=== PATIENT | male | born 1935 | race Caucasian/White ===

== ENCOUNTER 2020-01-06 15:59 | Inpatient (IN) | payer MEDICARE, MEDICAID, SELFPAY ==
[2020-01-06] VITALS (9 sets, daily range): BP systolic 100–130; BP diastolic 42–58; PULSE 87–106; RESP 20; TEMP 37.1–38.9; O2SAT 96–100; BMI 20.9
--- NOTE | ~2020-01-06 | CT_ITS ---
EXAMINATION: CT abdomen pelvis wo con DATE: 01/11/2020 10:22 INDICATION: Hydronephrosis. Leukocytosis. TECHNIQUE: Computed tomography (CT) of the abdomen and pelvis was performed without intravenous contr ast. Automated exposure control and iterative reconstruction technique were employed. The dose-length product was 246.73 mGy-cm. COMPARISON: CT abdomen and pelvis 11/08/2019 FINDINGS: The visualized portions of the lung bases demonstrate mild atelectasis and mild chronic int erstitial lung disease. There is a trace right pleural effusion. The heart size is normal. There are coronary artery calcifications. No pericardial effusion. The liver and spleen are normal. The gallbla dder is contracted. The pancreas and adrenal glands are normal. There are vascular calcifications at the brigitte of the kidneys. There is a 2.6 cm cyst in right kidney. There is a 1.6 cm cyst in left kidne y. There is edema around the kidneys. There is moderate bilateral hydronephrosis and hydroureter. The re is a 4.9 cm stone in the bladder. The bladder wall is trabeculated and thickened. There are bilate ral inguinal hernias containing nonobstructed small bowel. There is diverticulosis of the colon witho ut evidence of diverticulitis. The appendix is not visualized. There are no pathologically enlarged l ymph nodes. There is no free intraperitoneal fluid. There is mild lumbar spondylosis. IMPRESSION: 1. 4.9 cm bladder stone. Diffuse bladder wall thickening and trabeculation may be secondary to chroni c outlet obstruction or cystitis. 2. Unchanged moderate bilateral hydronephrosis and hydroureter. 3. Bilateral inguinal hernias containing nonobstructed small bowel. Reviewed, dictated and finalized at location A. IMPRESSION: 1. 4.9 cm bladder stone. Diffuse bladder wall thickening and trabeculation may be secondary to chronic outlet obstruction or cystitis. 2. Unchanged moderate bilateral hydronephrosis and hydroureter. 3. Bilateral inguinal hernias containing nonobstructed small bowel.
--- NOTE | ~2020-01-06 | CT_ITS ---
EXAMINATION: CT abdomen pelvis wo con DATE: 01/08/2020 09:06 INDICATION: Bladder stone. TECHNIQUE: Computed tomography (CT) of the abdomen and pelvis was performed without intravenous contr ast. Automated exposure control and iterative reconstruction technique were employed. The dose-length product was 219.16 mGy-cm. COMPARISON: Abdomen radiographs 01/07/2020 FINDINGS: The visualized portions of the lung bases demonstrate mild atelectasis and mild chronic demetris g disease. No pleural effusion. The heart size is normal. There are coronary artery calcifications. N o pericardial effusion. The liver, gallbladder, spleen, pancreas, and adrenal glands are normal. Ther e are arterial calcifications at the brigitte of the kidneys. There is a 1.9 cm cyst in left kidney. Ther e is moderate bilateral hydronephrosis and hydroureter. There is a 4.9 cm stone in the bladder. There is diffuse bladder wall thickening and trabeculation. The prostate is mildly enlarged. There is dive rticulosis of the colon without evidence of diverticulitis. There are bilateral inguinal hernias cont aining nonobstructed small bowel. There are no pathologically enlarged lymph nodes. There is no free intraperitoneal fluid. There is mild thoracolumbar spondylosis. IMPRESSION: 1. 4.9 cm bladder stone. Diffuse bladder wall thickening may be secondary to chronic outlet obstructi on or cystitis. 2. Moderate bilateral hydronephrosis and hydroureter. 3. Bilateral inguinal hernias containing nonobstructed small bowel. Reviewed, dictated and finalized at location B. IMPRESSION: 1. 4.9 cm bladder stone. Diffuse bladder wall thickening may be secondary to ch ronic outlet obstruction or cystitis. 2. Moderate bilateral hydronephrosis and hydroureter. 3. Bilateral inguinal hernias containing nonobstructed small bowel.
--- NOTE | ~2020-01-06 | XR_ITS ---
EXAMINATION: XR abdomen/kub 1V DATE: 01/07/2020 11:38 INDICATION: Back pain. Kidney infection. TECHNIQUE: A supine view of the abdomen on 2 radiographs was obtained. COMPARISON: None. FINDINGS: There are no dilated loops of bowel. There are phleboliths in the pelvis. There is a 5.6 cm calcification in the pelvis, likely a bladder stone. IMPRESSION: 1. Large bladder stone. Reviewed, dictated and finalized at location B. IMPRESSION: 1. Large bladder stone.
--- NOTE | ~2020-01-06 | XR_ITS ---
EXAMINATION: XR chest 2V EXAM DATE: 01/06/2020 17:47 INDICATION: Fever, mass, transient alteration of awareness. TECHNIQUE: Frontal and lateral projections of the chest obtained and reviewed. Comparison is made to prior examination from 08/28/2018. FINDINGS: Moderate chronic hyperinflation. No confluent consolidation, pneumothorax or pleural effus ion suspected. There is aortic arteriosclerosis. The bones are osteopenic. There are bony degenerati ve changes. IMPRESSION: Hyperinflation Reviewed, dictated and finalized at location A. IMPRESSION: Hyperinflation
[2020-01-06 16:57] LABS: Basophils Absolute Auto 0.1 K/mm3 (0.0-0.1); Basophils Percent Auto 0.3 % (0.2-1.2); Hematocrit 30.1 % (42.0-52.0); Hemoglobin 9.8 g/dL (14.0-18.0); Immature Granulocyte Absolute 0.16 K/mm3 (0.00-0.031); Immature Granulocyte Percent A 0.6 % (0-0.5); Lymphocytes Absolute Auto 0.73 K/mm3 (0.9-3.2); Mean Corpuscular HGB Conc 32.6 g/dl (32-36); Mean Platelet Volume 9.5 fl (7.4-10.4); Monocytes Absolute Auto 1.3 K/mm3 (0.1-0.6); Monocytes Percent Auto 5.2 % (2.6-8.5); Neutrophils Absolute Auto 22.4 K/mm3 (1.3-6.7); Neutrophils Percent Auto 90.9 % (45.5-73.1); Platelet Count Result 337 k/mm3 (150-375); White Blood Count 24.6 K/mm3 (4.5-10.0)
[2020-01-06 17:09] LABS: Alanine Aminotransferase 11 U/L (4-50); Albumin Level 3.6 g/dL (3.5-5.1); Alkaline Phosphatase 92 U/L (38-126); Anion Gap 9 mmol/L (8-16); Aspartate Amino Transferase 20 U/L (17-59); Bilirubin,Total 0.3 mg/dL (0.2-1.3); Blood Urea Nitrogen 46 mg/dL (9-20); Calcium 8.7 mg/dL (8.4-10.2); Carbon Dioxide 20 mmol/L (22-30); Chloride 103 mmol/L (98-107); Estimated CRCL calculation 17 ml/min; Estimated Glomerular Filt Rate 25; Glucose 130 mg/dL (75-110); Potassium 4.3 mmol/L (3.4-5.0); Sodium 132 mmol/L (137-145)
[2020-01-06] MEDS: SODIUM CHLORIDE 0.9% IV 1,000 ML 999 ML IV CONT ×2 (18:21→20:16)
--- NOTE | 2020-01-06 18:30 | ED.FEVER ---
HPI - Fever General Chief Complaint: Fever Stated Complaint: fever, short of breath Time Seen by Provider: 01/06/20 17:15 Source: patient and family Mode of arrival: ambulatory Limitations: other (hard of hearing) History of Present Illness HPI Narrative: This patient is an 84 year old male who presents with daughter for evaluation of weakness and possible UTI. His daughter states she has noticed foul smelling urine and fatigue over the past 1.5 weeks. She reports he is normally active but he has not felt like doing much over the past week. She also reports he has chronic issue with incontinence but it has been more frequent over the past month. His family member also reports patient had a fever of 101 at home today. He was not given any medication for his fever. Patien denies chest pain, cough, sob, abdominal pain, nausea or vomiting. His daughter states patient told her he was having shortness of breath. He states he felt that way earlier because he had a mask on He denies any complaints now MD elicited complaint: fever Related Data Home Medications Medication Instructions Recorded Confirmed No Home Medications 01/06/20 01/06/20 Allergies Allergy/AdvReac Type Severity Reaction Status Date / Time No Known Allergies Allergy Verified 01/06/20 17:24 Review of Systems Review of Systems: All systems reviewed & are unremarkable except as noted in HPI and below Constitutional: Constitutional: Reports fatigue and Reports fever(s) PMF Past Medical History Medical History (Updated 01/06/20 @ 22:10 by Elizabeth Soares MD) Patient denies medical problems Surgical History Surgical History (Updated 01/06/20 @ 19:57 by Elizabeth Soares MD) No significant past surgical history Social History Social History (Updated 01/06/20 @ 19:57 by Elizabeth Soares MD) Smoking packs per day: 1 Smoking cigarettes per day: 20.0 Smoking status: Former smoker Alcohol intake: never Gender identity (if verbalized by the patient): Male Exam Const: General: no acute distress and alert Nutritional Appearance: thin Orientation/consciousness: patient oriented x3 HENMT: Head: normocephalic and atraumatic Face and sinus: face symmetric Mouth: Yes lip normal and Yes moist mucous membranes Throat: uvula midline Eyes: Pupils: Equal, round and reactive pupils present EOM: EOMs intact bilaterally Neck: Neck: normal visual inspection and no lymphadenopathy Chest: Chest palpation & inspection: normal inspection of the chest Resp: Effort & Inspection: normal respiratory effort and no retractions Auscultation: clear to auscultation bilaterally Cardio: Rate: regular rate Rhythm: regular rhythm Heart sounds: no murmurs GI: GI Palp: Yes Soft to palpation, No Tenderness to palpation present (GI), No Guarding due to palpation present (GI), No Rigid due to palpation and Yes Hernia present (bilateral inguinal hernia) : Penis: Yes uncircumcised (purulent discharge at urethral meatus) Skin: General skin exam: normal color Neuro: General: patient oriented x3 and moves all extremities Course Reevaluation(s) Reevaluation #1: I Discussed with patient's daughter that he will be admitted to hospital. She states he has no known medical problems. This is the second time he has come to hospital in his life per daughter. She also denies surgeries. Date: 01/06/20 Time: 19:55 Consultations Consultation #1: I Discussed case with DR. Riojas who accepts patient to medical floor. Date: 01/06/20 Time: 20:27 Vital Signs Vital signs: Vital Signs Temperature 98.8 F 01/06/20 16:44 Pulse Rate 106 H 01/06/20 16:44 Respiratory Rate 01/06/20 16:44 Blood Pressure 106/50 L 01/06/20 16:44 Pulse Oximetry 100 01/06/20 16:44 Temperature 98.8 F 01/06/20 16:44 Pulse Rate 97 01/06/20 21:55 Respiratory Rate 20 01/06/20 21:55 Blood Pressure 100/48 L 01/06/20 21:55 Pulse Oximetry 97
[2020-01-06 18:34] LABS: INR 1.2; Lactic Acid Reflex 1.1 mmol/L (0.7-2.1); Prothrombin Time 15.3 Seconds (11.1-14.7)
[2020-01-06 18:35] LABS: Partial Thromboplastin Time 38.7 SECONDS (22.3-36.8)
[2020-01-06 18:35] LABS: Add Urine Microscopic? YES; Appearance Urine Turbid (Clear); Bacteria Urine 1+ /hpf; Bilirubin Urine Negative (Negative); Blood Urine 2+ (Negative); Glucose Urine UA Negative (Negative); Ketones Urine Negative (Negative); Leukocyte Esterase Ur 3+ LEU/UL (Negative); Mucus Urine Rare /lpf; Nitrate Urine Positive (Negative); Protein Urine 2+ mg/dL (Negative); Specific Grav Ur 1.011 (1.001-1.035); Squamous Epithelial Cell Urine Occasional /hpf (Few); Urobilinogen Urine Negative mg/dL (<2.0); WBC Clumps Urine Present /HPF; WBC Urine >75 /hpf
[2020-01-06 18:44] LABS: Color Urine Dark Yellow (Yellow)
[2020-01-06 18:50] LABS: Lactate Dehydrogenase 361 U/L (313-618)
[2020-01-06 19:01] LABS: Alveolar/Arterial O2 Gradient 37.9 mmHg; Base Excess ABG -6.1 mEq/l (+/-2.0); Carboxyhemoglobin 0.6 % THb (0-2.0); Fractional Inspired Oxygen 21 %; HCO3 ABG 17.2 mEq/l (22.0-26.0); Methemoglobin ABG 0.2 %THb (0-1.5); Oxygen Content ABG 12.7 %vol (16.0-22.0); Oxygen Saturation ABG 96.2 % (95.0-100.0); Oxyhemoglobin 94.6 % THb (90.0-100.0); PCO2 ABG 26.9 mmHg (35.0-45.0); PO2 ABG 79.6 mmHg (80.0-100.0); PO2 FiO2 Ratio Arterial Blood 3.79 %; Reduced Hemoglobin 4.6 %THb (0-5.0); Total Hemoglobin 9.5 g/dL (12.0-18.0); pH ABG 7.424 (7.350-7.450)
[2020-01-06 19:02] LABS: Device ROOM AIR; Site Drawn RIGHT BRACHIAL
[2020-01-06 19:04] LABS: CRP 32.6 mg/dL (<1.0)
--- NOTE | 2020-01-06 20:28 | ECG_ITS ---
Measurements Intervals [place] Rate: 114 P: 68 ME: 116 QRS: 86 QRSD: 94 T: 86 QT: 358 QTc: 494 Interpretive Statements SINUS TACHYCARDIA WITH SHORT ME INTERVAL ATRIAL PREMATURE COMPLEXES QRS MORPHOLOGY ALTERNATING RIGHT BUNDLE BRANCH BLOCK AND IRBBB BORDERLINE T WAVE ABNORMALITY- DIFFUSE LEADS BASELINE ARTIFACT- I, II, III, AVL, AVF, V4-V6 ABNORMAL ECG Electronically Signed On 01-07-2020 7:12:25 CDT by Obey Suarez D.O.
[2020-01-06] MEDS: SODIUM CHLORIDE 0.9% IV 1,000 ML 125 ML IV CONT (23:01)
--- NOTE | 2020-01-06 23:16 | ADMGEN ---
This patient, Jay Garncia, was admitted to Medical Room 251-. Patient/family oriented to hospital policies and general routines including ID bracelet, bed and alarms, visiting hours, pain management, procedures, bathroom and other care routines, personal items, smoking policy, room service/diet, and visiting hours. Valuables list has been completed. Information on how to activate the Rapid Response Team has been discussed. Patient/Family are encouraged to report perceived risks to care and to ask questions if they do not understand what they are told or what they should do.
[2020-01-07 05:14] LABS: Basophils Absolute Auto 0.1 K/mm3 (0.0-0.1); Basophils Percent Auto 0.4 % (0.2-1.2); Eosinophils Percent Auto 0.3 % (0-4.4); Hematocrit 26.9 % (42.0-52.0); Hemoglobin 8.4 g/dL (14.0-18.0); Immature Granulocyte Absolute 0.11 K/mm3 (0.00-0.031); Immature Granulocyte Percent A 0.8 % (0-0.5); Lymphocytes Absolute Auto 1.48 K/mm3 (0.9-3.2); Lymphocytes Percent Auto 10.5 % (18.3-44.2); Mean Corpuscular HGB Conc 31.2 g/dl (32-36); Mean Corpuscular Hemoglobin 27.5 pg (26-34); Mean Corpuscular Volume 88.2 fl (80-100); Mean Platelet Volume 9.6 fl (7.4-10.4); Monocytes Absolute Auto 1.1 K/mm3 (0.1-0.6); Neutrophils Absolute Auto 11.3 K/mm3 (1.3-6.7); Platelet Count Result 247 k/mm3 (150-375); Red Blood Count 3.05 M/mm3 (4.6-6.20); White Blood Count 14.1 K/mm3 (4.5-10.0)
[2020-01-07 05:34] LABS: Alanine Aminotransferase 12 U/L (4-50); Albumin Level 2.8 g/dL (3.5-5.1); Alkaline Phosphatase 71 U/L (38-126); Anion Gap 8 mmol/L (8-16); Aspartate Amino Transferase 22 U/L (17-59); Bilirubin,Total 0.3 mg/dL (0.2-1.3); Blood Urea Nitrogen 41 mg/dL (9-20); Calcium 7.5 mg/dL (8.4-10.2); Carbon Dioxide 19 mmol/L (22-30); Chloride 109 mmol/L (98-107); Estimated CRCL calculation 18 ml/min; Estimated Glomerular Filt Rate 27; Glucose 94 mg/dL (75-110); Potassium 4.3 mmol/L (3.4-5.0); Sodium 136 mmol/L (137-145)
[2020-01-07 06:00] VITALS: BP 110/52; PULSE 82; RESP 16; TEMP 36.5; O2SAT 97
[2020-01-07] MEDS: SODIUM CHLORIDE 0.9% IV 1,000 ML 125 ML IV CONT ×2 (08:27→17:33)
[2020-01-07] MEDS: ENOXAPARIN 30 MG/0.3 ML SYRINGE SUB-Q (08:28)
--- NOTE | 2020-01-07 09:28 | PM.IMHP ---
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 Patient is A&Ox3 for me today; he is hard of hearing. He answers questions appropriately but generally is a poor historian. Most of history is obtained from EMR and from step-daughter, Echo, who was contacted with patient's permission. Per patient, he is here, to take care of an infection . It is difficult for him to give me many more details beyond that, although he tells me that he has urinary incontinence and has been wearing depends for months; denies dysuria, hematuria, cloudy urine as far as he can tell. No back pain or any other pain, although Echo states he was grabbing his lower back and stating my kidneys are bad . He reportedly had a fever of 101 at home, prompting Echo to bring patient into the ER. Echo also notes that his frequency has increased the past 4-5 months and that his activity level has decreased the past several months, starting around when COVID pandemic began. He has worsened generalized weakness for the past 1.5 weeks, per Echo. Patient denies any other symptoms for me today; Echo is not aware of any other associated signs/symptoms. Echo and PAtient note he has hard stools occasionally, for which he takes a stool softener occasionally. Patient denies subjective f/c/s, myalgias/arthralgias, headaches, dizziness, lightheadedness, acute changes in v/h, cp/palpitations, sob/cough, n/v/d, abd pain, changes in BMs, dysuria, hematuria, cloudy urine, calf pain/swelling. No other sick contacts at home While in the ER, patient was found to have a UA suspicious for a UTI; he was also found to have a fever of 102 and an elevated WBC of 24.6k, meeting criteria for sepsis with UTI as suspected source; normal Lactic Acid. UCx and BCx obtained in ER and patient was placed on IV rocephin and IVF. Patient was also found to have a STELLA with Cr of 2.50, which improved with IVF this morning. Patient admitted under setting of STELLA, UTI/sepsis. 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 He is . He quit smoking for an unknown duration until his last year. His PCP is listed as Dr. Montejo. He wishes to be a Full Code Smoking packs per day: 0 Smoking cigarettes per day: 0.0 Years smoked: 68 Smoking pack-years: 0.00 Smoking status: Current every day smoker Tobacco type: cigarettes Second hand tobacco smoke exposure: Yes Additional smoking assessment comments: 6 cigarettes/day Alcohol intake: never Substance use: never Substance use type: does not use Gender identity (if verbalized by the patient): Male Spiritual care concerns: No Meds Home Medications and Allergies Home Medications Medication Instructions Recorded Confirmed Type No Home Medications
--- NOTE | 2020-01-07 11:39 | PCOTNOTE ---
Attempted OT evaluation, but patient out of room for a KUB. Will attempt again later today.
[2020-01-07] MEDS: DOCUSATE SODIUM 100 MG CAPSULE PO ×2 (12:13→21:43)
[2020-01-07 14:00] VITALS: BP 132/56; PULSE 85; RESP 16; TEMP 36.3; O2SAT 98
--- NOTE | 2020-01-07 16:22 | WPDURCON ---
Assessment and Plan Assessment and plan (1) Acute UTI: Code(s): N39.0 - Urinary tract infection, site not specified Status: Acute Assessment and Plan: continue IV antibiotics, tailor to culture sensitivity will plan to follow up in the office as an outpatient for surgical evaluation of bladder stone once infection has cleared and to repeat urine culture. No further evaluation at this time. (2) Bladder stone: Code(s): N21.0 - Calculus in bladder Status: Acute Urology Consult Note HPI Date Seen: 01/07/20 Requesting Physician: Trell Granda PA-C Primary Care Provider: Dev Montejo MD Consult Narrative Narrative: Jay Garnica is a 84 year old male who presented to the ER with c/o foul smelling urine x 1.5 weeks and frequency x 4-5 weeks. He denies hematuria, nocturia, hesitancy, straining, abdominal pain, flank pain, fever or chills. His urine culture is growing gram negative bacilli, but sensitivity is not yet done. He is currently on IV antibiotics and blood cultures are pending. His abdominal x-ray shows a large bladder stone measuring 5.6cm. 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 He is . He quit smoking for an unknown duration until his last year. His PCP is listed as Dr. Montejo. He wishes to be a Full Code Smoking packs per day: 0 Smoking cigarettes per day: 0.0 Years smoked: 68 Smoking pack-years: 0.00 Smoking status: Current every day smoker Tobacco type: cigarettes Second hand tobacco smoke exposure: Yes Additional smoking assessment comments: 6 cigarettes/day Alcohol intake: never Substance use: never Substance use type: does not use Gender identity (if verbalized by the patient): Male Spiritual care concerns: No Meds Home Medications and Allergies Home Medications Medication Instructions Recorded Confirmed Type No Home Medications 01/06/20 01/06/20 History Allergies Allergy/AdvReac Type Severity Reaction Status Date / Time No Known Allergies Allergy Verified 01/06/20 17:24 Vital Signs Vital Signs - 24 hr 01/06/20 16:44 01/06/20 17:20 01/06/20 17:21 Temperature 98.8 F Pulse Rate 106 H 95 Respiratory Rate 20 20 20 Blood Pressure 106/50 L 126/58 L Pulse Oximetry 100 98 01/06/20 18:21 01/06/20 19:14 01/06/20 20:15 Temperature Pulse Rate 95 87 96 Respiratory Rate 20 20 20 Blood Pressure 120/56 L 102/42 L Pulse Oximetry 97 98 96 01/06/20 21:55 01/06/20 23:02 01/06/20 23:08 Temperature 102 F H 102.0 F H Pulse Rate 97 100 Respiratory Rate 20 20 Blood Pressure 100/48 L 130/52 L Pulse Oximetry 97 100 01/07/20 06:00 01/07/20 14:00 Temperature 97.7 F 97.4 F L Pulse Rate 82 85 Respiratory Rate 16 16 Blood Pressure 110/52 L 132/56 L Pulse Oximetry 97 98 Exam Resp: Effort & Inspection: normal respiratory effort Cardio: Rate:
[2020-01-07 21:56] VITALS: BP 121/58; PULSE 89; RESP 16; TEMP 37.4; O2SAT 99
[2020-01-08] MEDS: SODIUM CHLORIDE 0.9% IV 1,000 ML 125 ML IV CONT (03:29)
[2020-01-08 05:39] VITALS: BP 117/46; PULSE 93; RESP 18; TEMP 37.2; O2SAT 99
[2020-01-08 06:01] LABS: Basophils Percent Auto 0.3 % (0.2-1.2); Hemoglobin 8.7 g/dL (14.0-18.0); Immature Granulocyte Absolute 0.08 K/mm3 (0.00-0.031); Immature Granulocyte Percent A 0.7 % (0-0.5); Lymphocytes Absolute Auto 1.21 K/mm3 (0.9-3.2); Lymphocytes Percent Auto 10.3 % (18.3-44.2); Mean Corpuscular HGB Conc 31.1 g/dl (32-36); Monocytes Absolute Auto 0.8 K/mm3 (0.1-0.6); Monocytes Percent Auto 6.8 % (2.6-8.5); Neutrophils Absolute Auto 9.6 K/mm3 (1.3-6.7); Neutrophils Percent Auto 81.9 % (45.5-73.1); Platelet Count Result 255 k/mm3 (150-375); Red Blood Count 3.22 M/mm3 (4.6-6.20); Red Cell Distribution Width 13.9 % (11.5-14.5); White Blood Count 11.8 K/mm3 (4.5-10.0)
[2020-01-08 06:14] LABS: Iron < 10 ug/dL (49-181)
[2020-01-08 06:18] LABS: Anion Gap 7 mmol/L (8-16); Blood Urea Nitrogen 30 mg/dL (9-20); Calcium 7.9 mg/dL (8.4-10.2); Carbon Dioxide 19 mmol/L (22-30); Chloride 114 mmol/L (98-107); Estimated CRCL calculation 19 ml/min; Estimated Glomerular Filt Rate 30; Glucose 101 mg/dL (75-110); Potassium 3.8 mmol/L (3.4-5.0); Sodium 140 mmol/L (137-145)
[2020-01-08] MEDS: ENOXAPARIN 30 MG/0.3 ML SYRINGE SUB-Q (08:41)
--- NOTE | 2020-01-08 11:32 | PM.IMPN ---
Progress Note: A&P Assessment and Plan (1) Acute UTI: Code(s): N39.0 - Urinary tract infection, site not specified Status: Acute Assessment and Plan: Patient placed on Rocephin in ER. BCx and UCx both growing E. Coli, susceptible to Rocephin. Large bladder calculus evident on xray and CT imaging. Echo states that he is known to have kidney stones in the past and the patient was [facility] [place] to [facility] these [facility] otherwise he would have recurrent UTIs; patient has not followed up with this. Continue IV Rocephin; monitor daily. Likely several more days due to septicemia. Consider transitioning to cefdinir upon discharge Continue light IVF Monitor (2) Septicemia due to E. coli: Code(s): A41.51 - Sepsis due to Escherichia coli [E. coli] Status: Acute Assessment and Plan: BCx positive for E. Coli x 2. With fever, brief tachycardia and leukocytosis on arrival; normal Lactic acid. UTI suspected source. STELLA and confusion as well Continue with treatment for UTI as above Continue IVF Monitor (3) Bladder stone: Code(s): N21.0 - Calculus in bladder Status: Acute Assessment and Plan: As evident on xray and CT imaging. Bladder stone 4.[address] imaging. Possibly due to retention and etiology behind UTI. Urology consulted and appreciate recommendations Await further rec from Urology, although likely OP f/u once infection is cleared (4) Acute renal failure (ARF): Code(s): N17.9 - Acute kidney failure, unspecified Status: Acute Assessment and Plan: Cr improved to 2.10 today from 2.50 yesterday with IVF from ED. Likely secondary to dehydration vs hydronephrosis evident on CT or combination thereof. Continue light IVF for now Monitor (5) Hydronephrosis: Code(s): N13.30 - Unspecified hydronephrosis Status: Acute Assessment and Plan: Moderate hydronephrosis b/l likely due to retention. Urology consulted and appreciate recommendations Await further rec from Urology Possibly urinary catheterization Monitor kidney function (6) BPH (benign prostatic hyperplasia): Code(s): N40.0 - Benign prostatic hyperplasia without lower urinary tract symptoms Status: Acute Assessment and Plan: Mildly enlarged prostate evident on CT abd/pelvis. Possibly causing urinary retention Urology following and appreciate recommendations Monitor (7) Generalized weakness: Code(s): R53.1 - Weakness Status: Acute Assessment and Plan: Family notes patient has gotten progressively weaker over the past several weeks/months. Possibly due to physical deconditioning. Echo states they had been in contact with Dr. Montejo's office about HH but have yet to obtain this. 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 Patient states he feels okay today, main complaint is being cold from the AC and tired from being woken up so often from staff, but other than that no complaints. Denies f/c/s, headaches, dizziness, lightheadedness, cp/palpitations, sob/cough, n/v/d/c, abd pain, dysuria, calf pain/swelling. Review of Systems
--- NOTE | 2020-01-08 11:52 | WPDUROPN2 ---
Progress Note: A&P Assessment and Plan (1) Bladder stone: Code(s): N21.0 - Calculus in bladder Status: Acute Assessment and Plan: Will plan to evaluate as an outpatient after he is discharged with Dr. Mcdonnell. (2) Acute UTI: Code(s): N39.0 - Urinary tract infection, site not specified Status: Acute Assessment and Plan: Continue IV antibiotics, blood and urine cultures grew E-Coli. (3) Severe sepsis: Code(s): A41.9 - Sepsis, unspecified organism; R65.20 - Severe sepsis without septic shock Status: Acute Assessment and Plan: Improving. (4) Acute renal failure (ARF): Code(s): N17.9 - Acute kidney failure, unspecified Status: Acute Assessment and Plan: Improving, creatinine is 2.10 today, I suspect he is in retention which is causing his STELLA, will place timmons if needed after bladder scan results. (5) BPH (benign prostatic hyperplasia): Code(s): N40.0 - Benign prostatic hyperplasia without lower urinary tract symptoms Status: Acute Assessment and Plan: Start Finasteride and FLomax. (6) Hydronephrosis: Code(s): N13.30 - Unspecified hydronephrosis Status: Acute Assessment and Plan: Will get a MEÑO in a few days to see if hydronephrosis is resolving. Subjective Subjective Date/Time Seen: 01/08/20 11:52 Gross Hematuria, Sepsis, UTI, Hydronephrosis, Bladder Stone Review of Systems Cardiovascular: Cardiovascular: Denies chest pain Respiratory: Respiratory: Reports no additional respiratory complaints Gastrointestinal: Gastrointestinal: Denies abdominal pain, Denies nausea and Denies vomiting Genitourinary: Genitourinary: Denies dysuria, Denies flank pain, Reports urinary frequency, Reports urinary incontinence and Reports urinary urgency Exam Resp: Effort & Inspection: normal respiratory effort Cardio: Rate: regular rate GI: GI Palp: Yes Soft to palpation and No Tenderness to palpation present (GI) : General: Yes no CVA tenderness Extrem: General: no edema Objective Data Vital Signs Vital Signs: Vital Signs - 24 hr 01/07/20 14:00 01/07/20 21:56 01/08/20 05:39 Temperature 97.4 F L 99.3 F 99 F Pulse Rate 85 89 93 Respiratory Rate 16 16 18 Blood Pressure 132/56 L 121/58 L 117/46 L Pulse Oximetry 98 99 99 Intake/Output Intake/Output: Intake & Output 01/05/20 01/06/20 01/07/20 01/08/20 23:59 23:59 23:59 23:59 Intake Total 2150 3920 1870 Balance 2150 3920 1870 Meds/Results Medications: Active Medications Generic Name Dose Route Start Last Admin Trade Name Freq PRN Reason Stop Dose Admin Acetaminophen 650 mg 01/07/20 07:18 Tylenol Tablet PO Q6H PRN Mild Pain (1-3) or Fever Docusate Sodium 100 mg 01/08/20 11:38 Colace Capsule PO PRN PRN Constipation Enoxaparin Sodium 30 mg 01/07/20 09:00 01/08/20 08:41 Lovenox SUB-Q 30 mg DAILY KIRIT Administration Ceftriaxone Sodium/Dextrose 1 gm in 50 mls @ 100 mls/hr 01/07/20 18:00 01/07/20 18:04 Rocephin 1 Gm/D5w 50 Ml IVPB Infused Q24H KIRIT Infusion Sodium Chloride 1,000 mls @ 75 mls/hr 01/06/20 20:45 01/08/20 03:29 Normal Saline Iv IV CONT 125 mls/hr .[id number] KIRIT Administration Nicotine 1 patch 01/07/20 10:03 Nicoderm Cq 7 Mg TRANSDERM PRN PRN Nicotine Cravings Ondansetron HCl 4 mg 01/06/20 20:29 Zofran Inj IV PUSH Q4H PRN Nausea Radiology Results: ITS Impressions Chest X-Ray 01/06/20 17:54 IMPRESSION: Hyperinflation Abdomen X-Ray 01/07/20 12:28 IMPRESSION: 1. Large bladder stone. Abdomen/Pelvis CT 01/08/20 09:16 IMPRESSION: 1. 4.9 cm bladder stone. Diffuse bladder wall thickening may be secondary to chronic outlet obstruction or cystitis. 2. Moderate bilateral hydronephrosis and hydroureter. 3. Bilateral inguinal hernias containing nonobstructed small bowel. Labs Labs: Laboratory Result
[2020-01-08] MEDS: SODIUM CHLORIDE 0.9% IV 1,000 ML 75 ML IV CONT (13:21)
[2020-01-08 13:30] VITALS: BP 118/52; PULSE 80; RESP 18; TEMP 37.3; O2SAT 100
[2020-01-08 13:30] LABS: Percent Iron Saturation < 6 % (20-50)
[2020-01-08] MEDS: TAMSULOSIN HCL 0.4 MG CAPSULE PO (13:31)
[2020-01-08] MEDS: FINASTERIDE 5 MG TABLET PO (13:31)
[2020-01-08 20:00] VITALS: BP 115/40; PULSE 85; RESP 20; TEMP 37.8; O2SAT 100
[2020-01-08 21:01] VITALS: TEMP 37.7
[2020-01-08] MEDS: ACETAMINOPHEN 325 MG TABLET 650 MG PO (21:01)
[2020-01-08 22:20] VITALS: TEMP 36.6
[2020-01-09] MEDS: SODIUM CHLORIDE 0.9% IV 1,000 ML 75 ML IV CONT (03:40)
[2020-01-09 05:36] LABS: Basophils Percent Auto 0.4 % (0.2-1.2); Hematocrit 26.8 % (42.0-52.0); Hemoglobin 8.4 g/dL (14.0-18.0); Immature Granulocyte Absolute 0.07 K/mm3 (0.00-0.031); Immature Granulocyte Percent A 0.7 % (0-0.5); Lymphocytes Percent Auto 14.3 % (18.3-44.2); Mean Corpuscular HGB Conc 31.3 g/dl (32-36); Mean Corpuscular Hemoglobin 27.3 pg (26-34); Mean Platelet Volume 10.1 fl (7.4-10.4); Monocytes Absolute Auto 0.9 K/mm3 (0.1-0.6); Monocytes Percent Auto 8.2 % (2.6-8.5); Neutrophils Percent Auto 76.4 % (45.5-73.1); Platelet Count Result 255 k/mm3 (150-375); Red Blood Count 3.08 M/mm3 (4.6-6.20); Red Cell Distribution Width 14.1 % (11.5-14.5); White Blood Count 10.5 K/mm3 (4.5-10.0)
[2020-01-09 05:42] VITALS: BP 121/48; PULSE 85; RESP 18; TEMP 37; O2SAT 98
[2020-01-09 06:01] LABS: Anion Gap 6 mmol/L (8-16); Blood Urea Nitrogen 22 mg/dL (9-20); CRP 16.3 mg/dL (<1.0); Calcium 7.7 mg/dL (8.4-10.2); Carbon Dioxide 20 mmol/L (22-30); Chloride 113 mmol/L (98-107); Estimated CRCL calculation 22 ml/min; Estimated Glomerular Filt Rate 36; Glucose 100 mg/dL (75-110); Magnesium 1.8 mg/dL (1.6-2.3); Potassium 3.5 mmol/L (3.4-5.0); Sodium 139 mmol/L (137-145)
[2020-01-09] MEDS: TAMSULOSIN HCL 0.4 MG CAPSULE PO (09:44)
[2020-01-09] MEDS: FINASTERIDE 5 MG TABLET PO (09:44)
[2020-01-09] MEDS: ENOXAPARIN 30 MG/0.3 ML SYRINGE SUB-Q (09:44)
[2020-01-09 14:00] VITALS: BP 132/92; PULSE 89; RESP 16; TEMP 37.5; O2SAT 99
--- NOTE | 2020-01-09 14:01 | PM.IMPN ---
Progress Note: A&P Assessment and Plan (1) Acute UTI: Code(s): N39.0 - Urinary tract infection, site not specified Status: Acute Assessment and Plan: Patient placed on Rocephin in ER. BCx and UCx both growing E. Coli, susceptible to Rocephin. Large bladder calculus evident on xray and CT imaging. Echo states that he is known to have kidney stones in the past and the patient was [facility] [place] to [facility] these [facility] otherwise he would have recurrent UTIs; patient has not followed up with this. Continue IV Rocephin; monitor daily. Likely several more days due to septicemia. Consider transitioning to cefdinir upon discharge Will hold off on IVF for now as patient has had >13 L of fluid total during stay thus far; encouraged PO intake for tonight and will reassess renal function tomorrow Monitor (2) Septicemia due to E. coli: Code(s): A41.51 - Sepsis due to Escherichia coli [E. coli] Status: Acute Assessment and Plan: BCx positive for E. Coli x 2. With fever, brief tachycardia and leukocytosis on arrival; normal Lactic acid. UTI suspected source. STELLA and confusion as well Continue with treatment for UTI as above Monitor (3) Bladder stone: Code(s): N21.0 - Calculus in bladder Status: Acute Assessment and Plan: As evident on xray and CT imaging. Bladder stone 4.[address] imaging. Possibly due to retention and etiology behind UTI, although bladder scan revealed 53 mL of fluid. Urology consulted and appreciate recommendations Await further rec from Urology, although likely OP f/u once infection is cleared (4) Acute renal failure (ARF): Code(s): N17.9 - Acute kidney failure, unspecified Status: Acute Assessment and Plan: Cr improved to 1.80 with IVF from ED. Likely secondary to dehydration vs hydronephrosis evident on CT or combination thereof. Will hold off on IVF for now as detailed above Encourage PO intake for now and reassess tomorrow Monitor (5) Hydronephrosis: Code(s): N13.30 - Unspecified hydronephrosis Status: Acute Assessment and Plan: Moderate hydronephrosis b/l likely due to retention. Urology consulted and appreciate recommendations Await further rec from Urology Possibly urinary catheterization Monitor kidney function (6) BPH (benign prostatic hyperplasia): Code(s): N40.0 - Benign prostatic hyperplasia without lower urinary tract symptoms Status: Acute Assessment and Plan: Mildly enlarged prostate evident on CT abd/pelvis. Possibly causing urinary retention Urology following and appreciate recommendations Monitor (7) Generalized weakness: Code(s): R53.1 - Weakness Status: Acute Assessment and Plan: Family notes patient has gotten progressively weaker over the past several weeks/months. Possibly due to physical deconditioning. Echo states they had been in contact with Dr. Montejo's office about HH but have yet to obtain this. 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
[2020-01-09 22:00] VITALS: BP 111/59; PULSE 111; RESP 21; TEMP 36.7; O2SAT 100
[2020-01-10 06:00] VITALS: BP 114/46; PULSE 63; RESP 20; TEMP 36.2; O2SAT 98
[2020-01-10 06:21] LABS: Basophils Absolute Auto 0.1 K/mm3 (0.0-0.1); Basophils Percent Auto 0.4 % (0.2-1.2); Hematocrit 24.7 % (42.0-52.0); Hemoglobin 7.9 g/dL (14.0-18.0); Immature Granulocyte Absolute 0.06 K/mm3 (0.00-0.031); Immature Granulocyte Percent A 0.5 % (0-0.5); Lymphocytes Absolute Auto 1.67 K/mm3 (0.9-3.2); Mean Corpuscular Hemoglobin 27.3 pg (26-34); Mean Corpuscular Volume 85.5 fl (80-100); Mean Platelet Volume 10.6 fl (7.4-10.4); Monocytes Absolute Auto 0.8 K/mm3 (0.1-0.6); Monocytes Percent Auto 7.3 % (2.6-8.5); Neutrophils Absolute Auto 8.5 K/mm3 (1.3-6.7); Neutrophils Percent Auto 76.8 % (45.5-73.1); Platelet Count Result 249 k/mm3 (150-375); Red Blood Count 2.89 M/mm3 (4.6-6.20); Red Cell Distribution Width 13.9 % (11.5-14.5); White Blood Count 11.1 K/mm3 (4.5-10.0)
[2020-01-10 06:24] LABS: Anion Gap 6 mmol/L (8-16); Blood Urea Nitrogen 20 mg/dL (9-20); Calcium 8.1 mg/dL (8.4-10.2); Carbon Dioxide 22 mmol/L (22-30); Chloride 110 mmol/L (98-107); Estimated CRCL calculation 21 ml/min; Estimated Glomerular Filt Rate 34; Glucose 95 mg/dL (75-110); Magnesium 1.7 mg/dL (1.6-2.3); Potassium 3.6 mmol/L (3.4-5.0); Sodium 138 mmol/L (137-145)
[2020-01-10 07:00] LABS: CRP 14.6 mg/dL (<1.0)
[2020-01-10] MEDS: ENOXAPARIN 30 MG/0.3 ML SYRINGE SUB-Q (08:20)
[2020-01-10] MEDS: TAMSULOSIN HCL 0.4 MG CAPSULE PO (08:20)
[2020-01-10] MEDS: FINASTERIDE 5 MG TABLET PO (08:20)
[2020-01-10] MEDS: SODIUM CHLORIDE 0.9% IV 1,000 ML 75 ML IV CONT ×2 (08:20→21:05)
--- NOTE | 2020-01-10 13:58 | PM.IMPN ---
Progress Note: A&P Assessment and Plan (1) Acute UTI: Code(s): N39.0 - Urinary tract infection, site not specified Status: Acute Assessment and Plan: Patient placed on Rocephin in ER. BCx and UCx both growing E. Coli, susceptible to Rocephin. Large bladder calculus evident on xray and CT imaging. Echo states that he is known to have kidney stones in the past and the patient was told by [facility] [place] to have these removed otherwise he would have recurrent UTIs; patient did not followed up with this. Continue IV Rocephin; monitor daily. Likely several more days due to septicemia. Consider transitioning to cefdinir upon discharge. Anticipate 10-14 days of antibiotic therapy given septicemia and large bladder calculus Resumed light IVF today given slightly worse renal function; possible component of retention/hydronephrosis contributing Monitor (2) Septicemia due to E. coli: Code(s): A41.51 - Sepsis due to Escherichia coli [E. coli] Status: Acute Assessment and Plan: BCx positive for E. Coli x 2. With fever, brief tachycardia and leukocytosis on arrival; normal Lactic acid. UTI suspected source. STELLA and confusion as well Continue with treatment for UTI as above Monitor (3) Bladder stone: Code(s): N21.0 - Calculus in bladder Status: Acute Assessment and Plan: As evident on xray and CT imaging. Bladder stone 4.[address] imaging. Possibly due to retention and etiology behind UTI, although bladder scan revealed 53 mL of fluid. Urology consulted and appreciate recommendations Await further rec from Urology, although likely OP f/u once infection is cleared Will defer decision for for Whitney catheter placement to Urology given size of stone (4) Acute renal failure (ARF): Code(s): N17.9 - Acute kidney failure, unspecified Status: Acute Assessment and Plan: Cr stable, but slightly worse at 1.90 without IVF overnight. Likely secondary to dehydration vs hydronephrosis evident on CT or combination thereof. Resume light IVF As above, will defer Whitney placement to Urology Monitor (5) Hydronephrosis: Code(s): N13.30 - Unspecified hydronephrosis Status: Acute Assessment and Plan: Moderate hydronephrosis b/l likely due to retention. Urology consulted and appreciate recommendations Await further rec from Urology Please see above a/p Monitor kidney function (6) BPH (benign prostatic hyperplasia): Code(s): N40.0 - Benign prostatic hyperplasia without lower urinary tract symptoms Status: Acute Assessment and Plan: Mildly enlarged prostate evident on CT abd/pelvis. Possibly causing urinary retention Urology following and appreciate recommendations Monitor (7) Generalized weakness: Code(s): R53.1 - Weakness Status: Acute Assessment and Plan: Family notes patient has gotten progressively weaker over the past several weeks/months. Possibly due to physical deconditioning. Echo states they had been in contact with Dr. Montejo's office about HH but have yet to obtain this. 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
[2020-01-10 14:00] VITALS: BP 116/54; PULSE 79; RESP 16; TEMP 36.4; O2SAT 99
[2020-01-10 22:00] VITALS: BP 130/48; PULSE 89; RESP 21; TEMP 37.6; O2SAT 100
[2020-01-11 05:44] LABS: Basophils Percent Auto 0.3 % (0.2-1.2); Hematocrit 27.3 % (42.0-52.0); Hemoglobin 8.7 g/dL (14.0-18.0); Immature Granulocyte Percent A 0.7 % (0-0.5); Lymphocytes Absolute Auto 1.08 K/mm3 (0.9-3.2); Lymphocytes Percent Auto 7.1 % (18.3-44.2); Mean Corpuscular HGB Conc 31.9 g/dl (32-36); Mean Corpuscular Hemoglobin 27.1 pg (26-34); Mean Platelet Volume 9.7 fl (7.4-10.4); Monocytes Absolute Auto 0.6 K/mm3 (0.1-0.6); Monocytes Percent Auto 4.2 % (2.6-8.5); Neutrophils Absolute Auto 13.3 K/mm3 (1.3-6.7); Neutrophils Percent Auto 87.7 % (45.5-73.1); Platelet Count Result 282 k/mm3 (150-375); Red Blood Count 3.21 M/mm3 (4.6-6.20); Red Cell Distribution Width 14.1 % (11.5-14.5); White Blood Count 15.1 K/mm3 (4.5-10.0)
[2020-01-11 06:00] VITALS: BP 128/55; PULSE 100; RESP 20; TEMP 37.4; O2SAT 98
[2020-01-11 06:20] LABS: Anion Gap 8 mmol/L (8-16); Blood Urea Nitrogen 18 mg/dL (9-20); CRP 19.1 mg/dL (<1.0); Calcium 8.2 mg/dL (8.4-10.2); Carbon Dioxide 22 mmol/L (22-30); Chloride 109 mmol/L (98-107); Estimated CRCL calculation 21 ml/min; Estimated Glomerular Filt Rate 34; Glucose 107 mg/dL (75-110); Magnesium 1.7 mg/dL (1.6-2.3); Potassium 3.4 mmol/L (3.4-5.0); Sodium 139 mmol/L (137-145)
[2020-01-11] MEDS: FINASTERIDE 5 MG TABLET PO (09:43)
[2020-01-11] MEDS: TAMSULOSIN HCL 0.4 MG CAPSULE PO (09:43)
[2020-01-11] MEDS: ENOXAPARIN 30 MG/0.3 ML SYRINGE SUB-Q (09:44)
[2020-01-11] MEDS: POTASSIUM CHLORIDE 20 MEQ TABLET 40 MEQ PO (09:44)
[2020-01-11] MEDS: SODIUM CHLORIDE 0.9% IV 1,000 ML 75 ML IV CONT (09:51)
[2020-01-11 14:05] VITALS: BP 112/58; PULSE 87; RESP 16; TEMP 36.9; O2SAT 100
--- NOTE | 2020-01-11 16:03 | PM.IMPN ---
Progress Note: A&P Assessment and Plan (1) Acute UTI: Code(s): N39.0 - Urinary tract infection, site not specified Status: Acute Assessment and Plan: Patient placed on Rocephin in ER. BCx and UCx both growing E. Coli, susceptible to Rocephin. Large bladder calculus evident on xray and CT imaging. Echo states that he is known to have kidney stones in the past and the patient was told by a [place] physician in [place] to have these removed otherwise he would have recurrent UTIs; patient did not followed up with this. WBC up to 15.1k and repeat CT abd/pelvis today showed similar results without evidence of other sources of infection Continue IV Rocephin; monitor daily. Likely several more days due to septicemia. Consider transitioning to cefdinir upon discharge. Anticipate 10-14 days of total antibiotic therapy given septicemia and large bladder calculus Continue light IVF today given slightly worse renal function; possible component of retention/hydronephrosis contributing Repeat BCx obtained due to worsened WBC; pending results Monitor (2) Septicemia due to E. coli: Code(s): A41.51 - Sepsis due to Escherichia coli [E. coli] Status: Acute Assessment and Plan: BCx positive for E. Coli x 2. With fever, brief tachycardia and leukocytosis on arrival; normal Lactic acid. UTI suspected source. STELLA and confusion as well Continue with treatment for UTI as above Monitor (3) Bladder stone: Code(s): N21.0 - Calculus in bladder Status: Acute Assessment and Plan: As evident on xray and CT imaging. Bladder stone 4.[address] imaging. Possibly due to retention and etiology behind UTI. Bladder scan revealed 53 mL of fluid. Urology consulted and appreciate recommendations Await further rec from Urology, although likely OP f/u once infection is cleared Will defer decision for for Whitney catheter placement to Urology given size of stone (4) Acute renal failure (ARF): Code(s): N17.9 - Acute kidney failure, unspecified Status: Acute Assessment and Plan: Cr stable at 1.90. Unclear baseline kidney function. Patient may very well have a component of chronic kidney disease. Acute injurey likely secondary to dehydration vs hydronephrosis evident on CT or combination thereof. Continue light IVF As above, will defer Whitney placement to Urology Monitor (5) Hydronephrosis: Code(s): N13.30 - Unspecified hydronephrosis Status: Acute Assessment and Plan: Moderate hydronephrosis b/l likely due to retention. Urology consulted and appreciate recommendations Await further rec from Urology Please see above a/p Monitor kidney function (6) BPH (benign prostatic hyperplasia): Code(s): N40.0 - Benign prostatic hyperplasia without lower urinary tract symptoms Status: Acute Assessment and Plan: Mildly enlarged prostate evident on CT abd/pelvis. Possibly causing urinary retention Urology following and appreciate recommendations Monitor (7) Generalized weakness: Code(s): R53.1 - Weakness Status: Acute Assessment and Plan: Family notes patient has gotten progressively weaker over the past several weeks/months. Possibly due to physical deconditioning. Echo states they had been in contact with Dr. Montejo's office about HH but have yet to obtain this. She states he will refuse SNF placement PT/OT; they have recommended HH therapy, will consider this upon discharge once medically stable (8) Tobacco use: Code(s): Z72.0 - Tobacco use Status: Acute Assessment and Plan: Will encourage cessation Nicotine patch PRN Subjective
[2020-01-11 22:00] VITALS: BP 114/45; PULSE 81; RESP 16; TEMP 37.5; O2SAT 98
[2020-01-12] MEDS: SODIUM CHLORIDE 0.9% IV 1,000 ML 50 ML IV CONT (03:52)
[2020-01-12 05:25] VITALS: BP 116/42; PULSE 64; RESP 16; TEMP 37.4; O2SAT 99
[2020-01-12 05:58] LABS: Basophils Percent Auto 0.3 % (0.2-1.2); Hematocrit 23.7 % (42.0-52.0); Hemoglobin 7.6 g/dL (14.0-18.0); Immature Granulocyte Absolute 0.11 K/mm3 (0.00-0.031); Immature Granulocyte Percent A 0.9 % (0-0.5); Lymphocytes Absolute Auto 1.39 K/mm3 (0.9-3.2); Lymphocytes Percent Auto 11.7 % (18.3-44.2); Mean Corpuscular HGB Conc 32.1 g/dl (32-36); Mean Corpuscular Hemoglobin 27.1 pg (26-34); Mean Corpuscular Volume 84.6 fl (80-100); Mean Platelet Volume 10.1 fl (7.4-10.4); Monocytes Absolute Auto 0.9 K/mm3 (0.1-0.6); Monocytes Percent Auto 7.6 % (2.6-8.5); Neutrophils Absolute Auto 9.4 K/mm3 (1.3-6.7); Neutrophils Percent Auto 79.5 % (45.5-73.1); Platelet Count Result 246 k/mm3 (150-375); Red Cell Distribution Width 14.1 % (11.5-14.5); White Blood Count 11.9 K/mm3 (4.5-10.0)
[2020-01-12 06:27] LABS: Anion Gap 7 mmol/L (8-16); Blood Urea Nitrogen 18 mg/dL (9-20); Calcium 7.7 mg/dL (8.4-10.2); Carbon Dioxide 23 mmol/L (22-30); Chloride 107 mmol/L (98-107); Estimated CRCL calculation 24 ml/min; Estimated Glomerular Filt Rate 39; Glucose 90 mg/dL (75-110); Magnesium 1.7 mg/dL (1.6-2.3); Potassium 3.5 mmol/L (3.4-5.0); Sodium 137 mmol/L (137-145)
[2020-01-12 06:36] LABS: CRP 19.5 mg/dL (<1.0)
[2020-01-12] MEDS: TAMSULOSIN HCL 0.4 MG CAPSULE PO (08:05)
[2020-01-12] MEDS: FINASTERIDE 5 MG TABLET PO (08:05)
[2020-01-12] MEDS: POTASSIUM CHLORIDE 20 MEQ TABLET 40 MEQ PO (08:05)
[2020-01-12] MEDS: ENOXAPARIN 30 MG/0.3 ML SYRINGE SUB-Q (08:06)
[2020-01-12 12:52] VITALS: BP 97/61; PULSE 82; RESP 20; TEMP 36.8; O2SAT 100
[2020-01-12 14:01] LABS: Hematocrit 22.6 % (42.0-52.0); Hemoglobin 7.2 g/dL (14.0-18.0)
--- NOTE | 2020-01-12 14:09 | WPDUROPN2 ---
Progress Note: A&P Assessment and Plan (1) Hydronephrosis: Code(s): N13.30 - Unspecified hydronephrosis Status: Acute Assessment and Plan: NO change on CT done yesterday as compared to CT from 01/08/2020. Per discussion with Dr. Acharya, since creatinine and PVR are normal, no intervention needed at this time. (2) BPH (benign prostatic hyperplasia): Code(s): N40.0 - Benign prostatic hyperplasia without lower urinary tract symptoms Status: Acute Assessment and Plan: Continue Flomax and Finasteride. (3) Bladder stone: Code(s): N21.0 - Calculus in bladder Status: Acute Assessment and Plan: Will still plan to follow up as outpatient with Dr. Mcdonnell for further evaluation. (4) Acute UTI: Code(s): N39.0 - Urinary tract infection, site not specified Status: Acute Assessment and Plan: Continue IV antibiotics. (5) Acute renal failure (ARF): Code(s): N17.9 - Acute kidney failure, unspecified Status: Acute Assessment and Plan: Improved. Was 2.1 last week and is now 1.7. PVR is 53cc, however we attempted to place a timmons for the patient d/t STELLA, Hydronephrosis and incontinence and he is refusing. No timmons is needed d/t STELLA improvment and PVR being normal. Would recommend daily bladder scans to ensure emptying. Subjective Subjective Date/Time Seen: 01/12/20 14:09 Bilateral Hydronephrosis, UTI, Bladder Stone Review of Systems Cardiovascular: Cardiovascular: Denies chest pain Respiratory: Respiratory: Reports no additional respiratory complaints Gastrointestinal: Gastrointestinal: Denies abdominal pain, Denies nausea and Denies vomiting Genitourinary: Genitourinary: Denies hematuria, Denies dysuria, Denies testicular mass, Denies urinary hesitancy, Denies urinary incontinence and Denies urinary urgency Exam Resp: Effort & Inspection: normal respiratory effort Cardio: Rate: regular rate GI: GI Palp: No abdominal tenderness, Yes Soft to palpation and No Tenderness to palpation present (GI) : General: No no CVA tenderness Extrem: General: no edema Objective Data Vital Signs Vital Signs: Vital Signs - 24 hr 01/11/20 22:00 01/12/20 05:25 01/12/20 12:52 Temperature 99.5 F 99.3 F 98.3 F Pulse Rate 81 64 82 Respiratory Rate 16 20 Blood Pressure 114/45 L 116/42 L 97/61 L Pulse Oximetry 98 99 100 Intake/Output Intake/Output: Intake & Output 01/09/20 01/10/20 01/11/20 01/12/20 23:59 23:59 23:59 23:59 Intake Total 3430 3080 3467 1443 Balance 3430 3080 3467 1443 Meds/Results Medications: Active Medications Generic Name Dose Route Start Last Admin Trade Name Freq PRN Reason Stop Dose Admin Acetaminophen 650 mg 01/07/20 07:18 01/08/20 21:01 Tylenol Tablet PO 650 mg Q6H PRN Administration Mild Pain (1-3) or Fever Docusate Sodium 100 mg 01/08/20 11:38 Colace Capsule PO PRN PRN Constipation Enoxaparin Sodium 30 mg 01/07/20 09:00 01/12/20 08:06 Lovenox SUB-Q 30 mg DAILY KIRIT Administration Finasteride 5 mg 01/08/20 12:00 01/12/20 08:05 Proscar PO 5 mg QAM KIRIT Administration Ceftriaxone Sodium/Dextrose 1 gm in 50 mls @ 100 mls/hr 01/07/20 18:00 01/11/20 19:05 Rocephin 1 Gm/D5w 50 Ml IVPB Infused Q24H KIRIT Infusion Sodium Chloride 1,000 mls @ 50 mls/hr 01/10/20 07:15 01/12/20 03:52 Normal Saline Iv IV CONT 50 mls/hr .Q20H KIRIT Administration Miconazole Nitrate 1 applic 01/11/20 21:35 01/12/20 08:06 Aloe [place] TOPICAL 1 applic Q12HR KIRIT Administration Nicotine 1 patch 01/07/20 10:03 Nicoderm Cq 7 Mg TRANSDERM PRN PRN Nicotine Cravings Ondansetron HCl 4 mg 01/06/20 20:29 Zofran Inj IV PUSH Q4H PRN Nausea Tamsulosin HCl 0.4 mg 01/08/20 12:00 01/12/20 08:05 Flomax PO 0.4 mg QAM KIRIT Administration Radiology Results: ITS Impressions Chest X-Ray 01/06/20 17:54 IMPRESS
[2020-01-12 15:10] VITALS: BP 106/66; PULSE 76; RESP 16; TEMP 37.2; O2SAT 99
--- NOTE | 2020-01-12 16:29 | PM.IMPN ---
Progress Note: A&P Assessment and Plan (1) Acute UTI: Code(s): N39.0 - Urinary tract infection, site not specified Status: Acute Assessment and Plan: Patient placed on Rocephin in ER. BCx and UCx both growing E. Coli, susceptible to Rocephin; repeat BCx from 01/10 ngtd x 2 after 1 day. Large bladder calculus evident on xray and CT imaging. Echo states that he is known to have kidney stones in the past and the patient was told [facility] [place] [facility] these removed otherwise he would have recurrent UTIs; patient did not followed up with this. WBC down 11.9k today. Repeat CT abd/pelvis tomorrow showed similar results without evidence of other sources of infection Continue IV Rocephin; monitor daily. Likely one more day due to septicemia. Likely jackie transition to cefdinir upon discharge. Anticipate 10-14 days of total antibiotic therapy given septicemia and large bladder calculus Continue light IVF today; possible component of retention/hydronephrosis contributing Monitor (2) Septicemia due to E. coli: Code(s): A41.51 - Sepsis due to Escherichia coli [E. coli] Status: Acute Assessment and Plan: BCx positive for E. Coli x 2. With fever, brief tachycardia and leukocytosis on arrival; normal Lactic acid. UTI suspected source. STELLA and confusion as well Continue with treatment for UTI as above Monitor (3) Bladder stone: Code(s): N21.0 - Calculus in bladder Status: Acute Assessment and Plan: As evident on xray and CT imaging. Bladder stone 4.[address] imaging. Possibly due to retention and etiology behind UTI. Bladder scan revealed 53 mL of fluid. Urology consulted and appreciate recommendations Await further rec from Urology; OP f/u once infection is cleared Will defer decision for for Whitney catheter placement to Urology given size of stone (4) Acute renal failure (ARF): Code(s): N17.9 - Acute kidney failure, unspecified Status: Acute Assessment and Plan: Cr stable at 1.70. Unclear baseline kidney function. Patient may very well have a component of chronic kidney disease. Acute injury likely secondary to dehydration vs hydronephrosis evident on CT or combination thereof. Continue light IVF As above, will defer Whitney placement to Urology Monitor (5) Hydronephrosis: Code(s): N13.30 - Unspecified hydronephrosis Status: Acute Assessment and Plan: Moderate hydronephrosis b/l likely due to retention. Urology consulted and appreciate recommendations Await further rec from Urology Please see above a/p Monitor kidney function (6) BPH (benign prostatic hyperplasia): Code(s): N40.0 - Benign prostatic hyperplasia without lower urinary tract symptoms Status: Acute Assessment and Plan: Mildly enlarged prostate evident on CT abd/pelvis. Possibly causing urinary retention Urology following and appreciate recommendations Monitor (7) Generalized weakness: Code(s): R53.1 - Weakness Status: Acute Assessment and Plan: Family notes patient has gotten progressively weaker over the past several weeks/months. Possibly due to physical deconditioning. Echo states they had been in contact with Dr. Montejo's office about HH but have yet to obtain this. She states he will refuse SNF placement PT/OT;Patient has had significant improvement since admission; OP therapy rec now (8) Tobacco use: Code(s): Z72.0 - Tobacco use Status: Acute Assessment and Plan: Will encourage cessation Nicotine patch PRN Subjective Date/time seen: 01/12/20 16:29 Interval history: Patient is a 84 yo M with hi
[2020-01-12 22:00] VITALS: BP 106/56; PULSE 74; RESP 16; TEMP 36.9; O2SAT 100
[2020-01-13] MEDS: SODIUM CHLORIDE 0.9% IV 1,000 ML 50 ML IV CONT (01:07)
[2020-01-13 05:23] VITALS: BP 114/40; PULSE 85; RESP 16; TEMP 37.4; O2SAT 97
[2020-01-13 05:54] LABS: Basophils Absolute Auto 0.1 K/mm3 (0.0-0.1); Basophils Percent Auto 0.5 % (0.2-1.2); Hematocrit 23.1 % (42.0-52.0); Hemoglobin 7.3 g/dL (14.0-18.0); Immature Granulocyte Absolute 0.05 K/mm3 (0.00-0.031); Immature Granulocyte Percent A 0.5 % (0-0.5); Lymphocytes Absolute Auto 1.32 K/mm3 (0.9-3.2); Lymphocytes Percent Auto 13.8 % (18.3-44.2); Mean Corpuscular HGB Conc 31.6 g/dl (32-36); Mean Corpuscular Volume 85.6 fl (80-100); Mean Platelet Volume 10.2 fl (7.4-10.4); Monocytes Absolute Auto 0.7 K/mm3 (0.1-0.6); Monocytes Percent Auto 7.1 % (2.6-8.5); Neutrophils Absolute Auto 7.5 K/mm3 (1.3-6.7); Neutrophils Percent Auto 78.1 % (45.5-73.1); Platelet Count Result 265 k/mm3 (150-375); Red Cell Distribution Width 14.2 % (11.5-14.5); White Blood Count 9.6 K/mm3 (4.5-10.0)
[2020-01-13 06:17] LABS: Anion Gap 5 mmol/L (8-16); Blood Urea Nitrogen 19 mg/dL (9-20); CRP 12.9 mg/dL (<1.0); Calcium 7.8 mg/dL (8.4-10.2); Carbon Dioxide 24 mmol/L (22-30); Chloride 107 mmol/L (98-107); Estimated CRCL calculation 25 ml/min; Estimated Glomerular Filt Rate 41; Glucose 93 mg/dL (75-110); Magnesium 1.8 mg/dL (1.6-2.3); Potassium 3.5 mmol/L (3.4-5.0); Sodium 136 mmol/L (137-145)
[2020-01-13] MEDS: FINASTERIDE 5 MG TABLET PO (08:32)
[2020-01-13] MEDS: TAMSULOSIN HCL 0.4 MG CAPSULE PO (08:32)
[2020-01-13] MEDS: ENOXAPARIN 30 MG/0.3 ML SYRINGE SUB-Q (08:32)
--- NOTE | 2020-01-13 10:02 | PM.DS ---
DS: Admitting Diagnosis Admitting Diagnosis Admitting Diagnosis: Acute UTI/severe sepsis, ARF DS: Discharge Diagnosis Discharge Diagnosis (1) Acute UTI: Code(s): N39.0 - Urinary tract infection, site not specified Status: Acute Assessment and Plan: Patient placed on Rocephin in ER. BCx and UCx both growing E. Coli, susceptible to Rocephin; repeat BCx from 01/10 ngtd x 2 after 2 days. Large bladder calculus evident on xray and CT imaging. Echo states that he is known to have kidney stones in the past and the patient was told by a [place] physician in [place] to have these removed otherwise he would have recurrent UTIs; patient did not followed up with this. WBC down 9.6k today. Repeat CT abd/pelvis 01/10 showed similar results without evidence of other sources of infection IV Rocephin during stay - 7 days during stay. PO cefdinir today and will complete therapy on 01/14 F/u with PCP and urology (2) Septicemia due to E. coli: Code(s): A41.51 - Sepsis due to Escherichia coli [E. coli] Status: Acute Assessment and Plan: BCx positive for E. Coli x 2. With fever, brief tachycardia and leukocytosis on arrival; normal Lactic acid. UTI suspected source. STELLA and confusion as well Continue with treatment for UTI as above (3) Bladder stone: Code(s): N21.0 - Calculus in bladder Status: Acute Assessment and Plan: As evident on xray and CT imaging. Bladder stone 4.[address] imaging. Possibly due to retention and etiology behind UTI. Bladder scan revealed 53 mL of fluid. Urology consulted and appreciate recommendations OP f/u with Urology for further management. Patient declined Whitney (4) Acute renal failure (ARF): Code(s): N17.9 - Acute kidney failure, unspecified Status: Acute Assessment and Plan: Cr stable at 1.60. Unclear baseline kidney function. Patient may very well have a component of chronic kidney disease. Acute injury likely secondary to dehydration vs hydronephrosis evident on CT or combination thereof. IVF during stay with improvement As above, patient declined Whitney BMP on 01/14 outpatient (5) Hydronephrosis: Code(s): N13.30 - Unspecified hydronephrosis Status: Acute Assessment and Plan: Moderate hydronephrosis b/l likely due to retention. Urology consulted and appreciate recommendations Await further rec from Urology Please see above a/p Monitor kidney function on 01/14 outpatient (6) BPH (benign prostatic hyperplasia): Code(s): N40.0 - Benign prostatic hyperplasia without lower urinary tract symptoms Status: Acute Assessment and Plan: Mildly enlarged prostate evident on CT abd/pelvis. Possibly causing urinary retention Urology following and appreciate recommendations Patient declined Whitney F/u with Urology (7) Generalized weakness: Code(s): R53.1 - Weakness Status: Acute Assessment and Plan: Family notes patient has gotten progressively weaker over the past several weeks/months. Possibly due to physical deconditioning. Echo states they had been in contact with Dr. Montejo's office about HH but have yet to obtain this. She states he will refuse SNF placement PT/OT;Patient has had significant improvement since admission; OP therapy rec now (8) Tobacco use: Code(s): Z72.0 - Tobacco use Status: Acute Assessment and Plan: Cessation encouraged Nicotine patch PRN (9) Anemia: Code(s): D64.9 - Anemia, unspecified Status: Acute Assessment and Plan: Likely anemia of chronic disease with low iron, TIBC, and high ferritin. Hgb trending down, without evide
--- NOTE | 2020-01-13 11:27 | PCDIET ---
Weekly nutritional screen. Patient is tolerating current diet, regular, which is appropriate with adequate intake of 90-100% meals. No weight loss reported. No nutritional needs at this time.
[2020-01-13 14:00] VITALS: BP 102/60; PULSE 73; RESP 16; TEMP 36.8; O2SAT 100
== END 2020-01-13 16:56 | disposition home or self-care (01) | DRG 872 ==
LOC: ANHED 21:08 → ANH2MED 22:10
PROVIDERS: Admitting Provider Internal Medicine; Emergency Provider General Practice; PCP Family Medicine; Visit Provider Physician Assistant
DX: A41.51 Sepsis due to Escherichia coli [E. coli] (principal); N39.0 Urinary tract infection, site not specified; N13.39 Other hydronephrosis; N17.8 Other acute kidney failure; R65.20 Severe sepsis without septic shock; N40.1 Benign prostatic hyperplasia with lower urinary tract symptoms; E86.0 Dehydration; N39.498 Other specified urinary incontinence; R33.8 Other retention of urine; N21.0 Calculus in bladder; D63.8 Anemia in other chronic diseases classified elsewhere; F17.210 Nicotine dependence, cigarettes, uncomplicated; Z98.42 Cataract extraction status, left eye; Z98.41 Cataract extraction status, right eye
CPT/HCPCS: 36415; 36600; 71046; 74018; 74176; 80048; 80053; 81001; 82375; 82728; 82805; 83050; 83540; 83550; 83605; 83615; 83735; 85014; 85018; 85025; 85610; 85730; 86140; 87040; 87077; 87086; 87088; 87186; 93005; 96361; 96365; 97110; 97116; 97161; 97165; 97530; 97535; 99291; A9270; J0131; J0696; J1650; J7030

== ENCOUNTER 2020-02-23 00:44 | Outpatient (CLI) | payer MEDICARE, MEDICAID, SELFPAY ==
[2020-02-23 18:01] LABS: SARS-CoV-2 RNA PCR Negative
== END 2020-02-23 00:45 | disposition home or self-care (01) ==
LOC: ANHCOVIDDT 00:44
PROVIDERS: PCP Family Medicine; Visit Provider Urology
DX: Z01.812 Encounter for preprocedural laboratory examination (principal); Z20.828 Contact with and (suspected) exposure to other viral communicable diseases
CPT/HCPCS: 87635; C9803; U0003

== ENCOUNTER 2020-02-24 08:39 | Inpatient (IN) | payer MEDICARE, MEDICAID, SELFPAY ==
[2020-02-24 09:30] VITALS: BP 120/60; PULSE 81; RESP 15; TEMP 36.4; O2SAT 100; BMI 19.3
--- NOTE | 2020-02-24 09:34 | ADMGEN ---
This patient, Jay Garnica, was admitted to 2 Medical Room 259-01. Patient/family oriented to hospital policies and general routines including ID bracelet, bed and alarms, visiting hours, pain management, procedures, bathroom and other care routines, personal items, smoking policy, room service/diet, and visiting hours. Valuables list has been completed. Information on how to activate the Rapid Response Team has been discussed. Patient/Family are encouraged to report perceived risks to care and to ask questions if they do not understand what they are told or what they should do.
[2020-02-24 11:24] LABS: Hematocrit 29.1 % (42.0-52.0); Hemoglobin 9.1 g/dL (14.0-18.0); Mean Corpuscular HGB Conc 31.3 g/dl (32-36); Mean Corpuscular Hemoglobin 26.5 pg (26-34); Mean Corpuscular Volume 84.8 fl (80-100); Mean Platelet Volume 10.1 fl (7.4-10.4); Platelet Count Result 328 k/mm3 (150-375); Red Blood Count 3.43 M/mm3 (4.6-6.20); Red Cell Distribution Width 14.6 % (11.5-14.5); White Blood Count 10.8 K/mm3 (4.5-10.0)
[2020-02-24] MEDS: DEXTROSE 5%/LACTATED RINGERS 1,000 ML 125 ML IV CONT ×2 (11:34→20:50)
[2020-02-24 11:38] LABS: Anion Gap 9 mmol/L (8-16); Blood Urea Nitrogen 47 mg/dL (9-20); Calcium 9.1 mg/dL (8.4-10.2); Carbon Dioxide 24 mmol/L (22-30); Chloride 109 mmol/L (98-107); Estimated CRCL calculation 13 ml/min; Estimated Glomerular Filt Rate 22; Glucose 98 mg/dL (75-110); Potassium 4.2 mmol/L (3.4-5.0); Sodium 142 mmol/L (137-145)
[2020-02-24 14:15] VITALS: BP 109/52; PULSE 68; RESP 16; TEMP 36.8; O2SAT 100
[2020-02-24 16:41] LABS: Hematocrit 29.2 % (42.0-52.0); Hemoglobin 9.1 g/dL (14.0-18.0); Mean Corpuscular HGB Conc 31.2 g/dl (32-36); Mean Corpuscular Hemoglobin 26.3 pg (26-34); Mean Corpuscular Volume 84.4 fl (80-100); Mean Platelet Volume 9.5 fl (7.4-10.4); Platelet Count Result 314 k/mm3 (150-375); Red Blood Count 3.46 M/mm3 (4.6-6.20); Red Cell Distribution Width 14.5 % (11.5-14.5); White Blood Count 10.3 K/mm3 (4.5-10.0)
[2020-02-24 16:54] LABS: Anion Gap 8 mmol/L (8-16); Blood Urea Nitrogen 44 mg/dL (9-20); Calcium 8.7 mg/dL (8.4-10.2); Carbon Dioxide 25 mmol/L (22-30); Chloride 108 mmol/L (98-107); Estimated CRCL calculation 13 ml/min; Estimated Glomerular Filt Rate 22; Glucose 104 mg/dL (75-110); Potassium 3.8 mmol/L (3.4-5.0); Sodium 141 mmol/L (137-145)
[2020-02-24 18:00] VITALS: BP 135/60; PULSE 73; RESP 15; TEMP 36.8; O2SAT 100
[2020-02-24] MEDS: TAMSULOSIN HCL 0.4 MG CAPSULE PO (21:35)
[2020-02-24 22:00] VITALS: BP 130/54; PULSE 73; RESP 20; TEMP 37; O2SAT 98
[2020-02-25] VITALS (11 sets, daily range): BP systolic 110–151; BP diastolic 47–68; PULSE 69–89; RESP 14–21; TEMP 36.2–37.1; O2SAT 93–100
[2020-02-25] MEDS: DEXTROSE 5%/LACTATED RINGERS 1,000 ML 125 ML IV CONT (06:05)
[2020-02-25 06:51] LABS: Hematocrit 27.4 % (42.0-52.0); Hemoglobin 8.6 g/dL (14.0-18.0); Mean Corpuscular HGB Conc 31.4 g/dl (32-36); Mean Corpuscular Hemoglobin 26.4 pg (26-34); Mean Platelet Volume 9.9 fl (7.4-10.4); Platelet Count Result 292 k/mm3 (150-375); Red Blood Count 3.26 M/mm3 (4.6-6.20); Red Cell Distribution Width 14.5 % (11.5-14.5); White Blood Count 10.3 K/mm3 (4.5-10.0)
[2020-02-25 07:13] LABS: NT Pro B Type Natriuretic Pept 2790 PG/ML (5-100)
--- NOTE | 2020-02-25 11:03 | WPDURCON ---
Assessment and Plan Assessment and plan (1) Cystitis: Code(s): N30.90 - Cystitis, unspecified without hematuria Status: Acute (2) Bladder stone: Code(s): N21.0 - Calculus in bladder Status: Acute Assessment and Plan: Obtain Consent: cystoscopy, open cystolithotomy and circumcision Plan to go to the OR today. Keep patient NPO. Urology Consult Note HPI Date Seen: 02/25/20 Requesting Physician: Aníbal Mcdonnell MD Primary Care Provider: Dev Montejo MD Consult Narrative Narrative: Jay Garnica is a 85 year old male who was admitted yesterday for pre-operative antibiotics. He is going to the OR today for a cystoscopy, open cystolithotomy and circumcision. He is doing well and has no complaints. 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 He is . He quit smoking for an unknown duration until his last year. His PCP is listed as Dr. Montejo. He wishes to be a Full Code Smoking packs per day: 0 Smoking cigarettes per day: 0.0 Years smoked: 68 Smoking pack-years: 0.00 Smoking status: Current every day smoker Tobacco type: cigarettes Second hand tobacco smoke exposure: Yes Additional smoking assessment comments: 6 cigarettes/day Alcohol intake: never Substance use: never Substance use type: does not use Gender identity (if verbalized by the patient): Male Spiritual care concerns: No Meds Home Medications and Allergies Home Medications Medication Instructions Recorded Confirmed Type finasteride [Proscar] 5 mg PO QAM #30 tablet 01/13/20 02/24/20 Rx nitrofurantoin monohyd/m-cryst 100 mg PO BID 02/24/20 02/24/20 History tamsulosin 0.4 mg PO HS 02/24/20 02/24/20 History Allergies Allergy/AdvReac Type Severity Reaction Status Date / Time No Known Allergies Allergy Verified 01/21/20 15:21 Vital Signs Vital Signs - 24 hr 02/24/20 14:15 02/24/20 18:00 02/24/20 22:00 Temperature 98.2 F 98.2 F 98.6 F Pulse Rate 68 73 73 Respiratory Rate 16 15 20 Blood Pressure 109/52 L 135/60 130/54 L Pulse Oximetry 100 100 98 02/25/20 02:00 02/25/20 06:00 Temperature 98.7 F 98.0 F Pulse Rate 79 69 Respiratory Rate 21 H 21 H Blood Pressure 120/56 L 119/63 Pulse Oximetry 100 100 Exam Resp: Effort & Inspection: normal respiratory effort Cardio: Rate: regular rate GI: GI Palp: Yes Soft to palpation and No Tenderness to palpation present (GI) Extrem: General: no edema Results Labs CBC & Chem 7: 02/25/20 06:14 02/24/20 16:35 Labs: Short CBC 02/24/20 02/24/20 02/25/20 Range/Units 10:59 16:35 06:14 WBC 10.8 H 10.3 H 10.3 H (4.5-10.0) K/mm3 Hgb 9.1 L 9.1 L 8.6 L (14.0-18.0) g/dL Hct 29.1 L 29.2 L 27.4 L (42.0-52.0) % Plt Count 328 314 292 (150-375) k/mm3 BMP 02/24/20 02/24/20 10:59 16:35 Sodium 142 141 Potassium 4.2 3.8 Chloride 109 H 108 H Carbon Dioxide 24 25 BUN 47 H D 44 H
--- NOTE | 2020-02-25 12:13 | PC.NURSE ---
pt taken to surgery via stretcher, able to ambulate to stretcher without difficulty, family member updated by surgery RN on plan for the day
[2020-02-25] MEDS: LACTATED RINGERS 1,000 ML 30 ML IV CONT ×3 (12:39→16:44)
--- NOTE | 2020-02-25 12:50 | WPDHPUPDATE1 ---
History and Physical Update Update Date/Time: 02/25/20 12:50 History and Physical has been reviewed, including an updated exam of the patient. There are NO changes in the patient's condition, except worsening renal function as documented. . Risks, benefits, and alternatives have been discussed and questions answered. Patient agrees to proceed with procedure.
--- NOTE | 2020-02-25 13:05 | WPDANESEPPF ---
Anes - Initial Pre Proc Eval Procedure: Operation Date: 02/25/20 13:00 Proposed Procedures p Open Cystolithotomy - Aníbal Mcdonnell MD s Circumcision - Aníbal Mcdonnell MD s Flexible Cystoscopy - Aníbal Mcdonnell MD Date/Time: 02/25/20 13:05 Surgeon: Aníbal Mcdonnell MD Pre Op Diagnosis: open cystolithotomy, bladder stone, phimosis Patient Data Age: 85 Gender: M Height: 5 ft 5 in Weight: 52.8 kg Last Vital Signs Temp 98.0 F 02/25/20 06:00 Pulse 69 02/25/20 06:00 Resp 21 H 02/25/20 06:00 BP 119/63 02/25/20 06:00 Pulse Ox 100 02/25/20 06:00 Allergies Allergy/AdvReac Type Severity Reaction Status Date / Time No Known Allergies Allergy Verified 02/25/20 12:40 Home Medications Medication Instructions Recorded Confirmed Type finasteride [Proscar] 5 mg PO QAM #30 tablet 01/13/20 02/24/20 Rx nitrofurantoin monohyd/m-cryst 100 mg PO BID 02/24/20 02/24/20 History tamsulosin 0.4 mg PO HS 02/24/20 02/24/20 History Laboratory Tests 02/24/20 02/24/20 02/25/20 16:35 16:35 06:14 WBC 10.3 K/mm3 H K/mm3 10.3 K/mm3 H K/mm3 (4.5-10.0) (4.5-10.0) RBC 3.46 M/mm3 L M/mm3 3.26 M/mm3 L M/mm3 (4.6-6.20) (4.6-6.20) Hgb 9.1 g/dL L g/dL 8.6 g/dL L g/dL (14.0-18.0) (14.0-18.0) Hct 29.2 % L % 27.4 % L % (42.0-52.0) (42.0-52.0) MCV 84.4 fl fl 84.0 fl fl (80-100) (80-100) MCH 26.3 pg pg 26.4 pg pg (26-34) (26-34) MCHC 31.2 g/dl L g/dl 31.4 g/dl L g/dl (32-36) (32-36) RDW 14.5 % % 14.5 % % (11.5-14.5) (11.5-14.5) Plt Count 314 k/mm3 k/mm3 292 k/mm3 k/mm3 (150-375) (150-375) MPV 9.5 fl fl 9.9 fl fl (7.4-10.4) (7.4-10.4) Sodium 141 mmol/L mmol/L (137-145) Potassium 3.8 mmol/L mmol/L (3.4-5.0) Chloride 108 mmol/L H mmol/L (98-107) Carbon Dioxide 25 mmol/L mmol/L (22-30) Anion Gap 8 mmol/L mmol/L (8-16) BUN 44 mg/dL H mg/dL (9-20) Creatinine 2.80 mg/dL H mg/dL (0.7-1.3) Estim Creat Clear Calc 13 ml/min ml/min Estimated GFR 22 L (59 - ) Glucose 104 mg/dL mg/dL (75-110) Calcium 8.7 mg/dL mg/dL (8.4-10.2) NT-Pro-B Natriuret Pep Blood Type Antibody Screen 02/25/20 02/25/20 06:14 06:14 WBC RBC Hgb Hct MCV MCH MCHC RDW Plt Count MPV Sodium Potassium Chloride Carbon Dioxide Anion Gap BUN Creatinine Estim Creat Clear Calc Estimated GFR Glucose Calcium NT-Pro-B Natriuret Pep 2790 PG/ML H PG/ML (5-100) Blood Type O Positive Antibody Screen Negative Patient hx anesthesia problems: none Family hx anesthesia problems: none [facility] Past Medical History Medical History Bilateral cataracts Bilateral inguinal hernia 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 He is . He quit smoking for an unknown duration until his last year. His PCP is listed as Dr. Montejo. He wishes to be a Full Code Smoking packs per day: 0 Smoking cigarettes per day: 0.0 Years smoked: 68 Smoking pack-years: 0.00 Smoking status: Cur
--- NOTE | 2020-02-25 16:39 | P.OP_ITS ---
Procedure Note - Detailed Date of procedure: 02/25/20 Pre-op diagnosis: open cystolithotomy, bladder stone, phimosis Post-op diagnosis: same Procedure performed: open cystolithotomy,cystoscopy, circumcision Description of procedure: Informed consent was obtained. Patient taken the operating. He was given preoperative IV antibiotics. The patient was admitted 1 day prior to surgery for antibiotics as well. The patient was induced anesthe nadir he was shaved he was prepped in normal sterile fashion. Patient had large bilateral inguinal hernias these were reduced the patient was placed in mild Trendelenburg position to keep the in-place. The patient had extremely fibrotic foreskin I was unable to retract the skin therefore the dorsal preputial skin was incised after injection of Marcaine was performed. We then were able to identify the glans, that was normal appearing. The preputial skin was very irritated in thin in a small portion was excised and sent as specimen. We then reapproximated the dartos layer with 3 0 Vicryl sutures. This point, the skin did not come together well and appeared to put pressure on the glans therefore in order to have good skin coverage, we reapproximated the dorsal skin longitudinally and then brought to the shaft skin up to the glans with interrupted 3 O Vicryl sutures. We were then able to achieve a nice cosmetic result. At this point, we performed flexible cystoscopy the patient has a normal urethra, a rather smaller than expected prostate approximately 20cc, and upon entering the bladder the large stone was identified and the mucosa was rather inflamed. No masses were noted. We then passed a wire past the level of the stone and advance a 20 F [place] tip catheter over the wire. There is return of urine and mucus. We then made a 5cm low anterior incision just above the pubis. We dissected down to the external oblique fascia which was rather thin appearing. We then opened the fascia in midline and gently the rectus muscle to enter the extraperitoneal space. At this point we filled the bladder with approximately 150 cc, and at this point the bladder would not fill additionally as fluid would leak around the catheter. We then open the bladder in midline. Once the bladder was opened we identified the large stone and it was grasped and I was able to remove the bladder through the cystotomy. At this point we inspected the bladder and there was no injury noted. We irrigated copiously and then we closed the bladder in 2 layers with 2 0 Vicryl suture -a leak test was performed and we did notice some leakage of fluid when we filled the bladder with gardenia roximately 150mL therefore sutures removed and we then closed again with a 2 layer closure with 2 0 Vicryl. At this point there was a very small leak when filled to 150mL, and this was repaired with a single figure of 8 of 2 0 Vicryl suture. At this point we filled with 150mL and no leak was noted, ensuring a watertight closure. We then filled again with 150mL and again there was not a week. At this point we irrigated copiously. We then placed a right lower quadrant drain to sit in the extraperitoneal space. We then closed the fascia with 0 looped PDS suture. We closed the Jayne's layer with 2 0 Vicryl suture deep dermal layer with 3 O Vicryl suture and the skin was reapproximated with a subcuticular closure of Juan Monocryl suture. Dressing was placed over the penis and glue was placed over the abdominal incision. The patient was taken recovery room stable condition. Anesthesia: GETA Surgeon: Aníbal Mcdonnell MD Estimated blood loss (mL): 100 Drains: Yes Packing: No Pathology: yes Complications: No immediate complications Condition: stable Disposition: PACU
[2020-02-25] MEDS: fentaNYL CITRATE INJ (*CRX) 100 MCG/2 ML VIAL 25 MCG IV PUSH (17:41)
--- NOTE | 2020-02-25 18:03 | PC.NURSE ---
pt returned from surgery, resting comfortably, grand-daughter at bedside, no distress noted
[2020-02-25] MEDS: TAMSULOSIN HCL 0.4 MG CAPSULE PO (20:00)
[2020-02-25] MEDS: DOCUSATE SODIUM 100 MG CAPSULE PO (20:00)
[2020-02-25] MEDS: ceFAZolin 2 GM/D5W 50 ML 2 GM/50 ML BAG IVPB (20:01)
[2020-02-26 02:00] VITALS: BP 113/84; PULSE 74; RESP 20; TEMP 36.4; O2SAT 99
[2020-02-26] MEDS: ceFAZolin 2 GM/D5W 50 ML 2 GM/50 ML BAG IVPB ×3 (05:10→19:55)
[2020-02-26] MEDS: DEXTROSE 5%/LACTATED RINGERS 1,000 ML 125 ML IV CONT ×3 (05:11→23:37)
[2020-02-26 06:00] VITALS: BP 123/52; PULSE 75; RESP 20; TEMP 36.8; O2SAT 98
--- NOTE | 2020-02-26 08:41 | WPDUROPN2 ---
Progress Note: A&P Assessment and Plan (1) BPH (benign prostatic hyperplasia): Qualifiers: Lower urinary tract symptom presence: unspecified whether lower urinary tract symptoms present Qualified Code(s): N40.0 - Benign prostatic hyperplasia without lower urinary tract symptoms Code(s): N40.0 - Benign prostatic hyperplasia without lower urinary tract symptoms Status: Acute (2) Bladder stone: Code(s): N21.0 - Calculus in bladder Status: Acute Assessment and Plan: Continue with pain management, hopefully the EDWIN drain will be removed tomorrow if output remains minimal. Catheter will stay in until cystogram is completed as an outpatient. Will likely discharge home tomorrow. (3) Phimosis: Code(s): N47.1 - Phimosis Status: Acute Assessment and Plan: Keep dressing dry and intact. Change if bloody drainage saturates. Will remove tomorrow to assess. Subjective Subjective Date/Time Seen: 02/26/20 08:41 POD #1 Open cystolithotomy,cystoscopy, circumcision Review of Systems Cardiovascular: Cardiovascular: Denies chest pain Respiratory: Respiratory: Reports no additional respiratory complaints Gastrointestinal: Gastrointestinal: Reports abdominal pain, Denies nausea and Denies vomiting Genitourinary: Genitourinary: Denies hematuria, Reports genital pain and Denies flank pain Exam Resp: Effort & Inspection: normal respiratory effort Cardio: Rate: regular rate GI: GI Palp: Yes Soft to palpation and Yes Tenderness to palpation present (GI) (at abdominal incision and penis ) : General: Yes no CVA tenderness Penis: Yes circumcised and Yes other (dressing is dry and intact, no drainage saturation) Urinary Catheter: Urinary Catheter: patent and draining and urine clear Extrem: General: no edema Objective Data Vital Signs Vital Signs: Vital Signs - 24 hr 02/25/20 16:44 02/25/20 16:55 02/25/20 17:10 Temperature 97.1 F L Pulse Rate 89 80 84 Respiratory Rate 18 14 16 Blood Pressure 151/68 H 135/65 130/61 Pulse Oximetry 100 100 100 02/25/20 17:25 02/25/20 17:40 02/25/20 18:00 Temperature 98.0 F Pulse Rate 85 86 87 Respiratory Rate 16 16 16 Blood Pressure 132/60 129/58 L 123/50 L Pulse Oximetry 93 95 97 02/25/20 18:15 02/25/20 18:45 02/25/20 22:00 Temperature 98.3 F 97.9 F 98.5 F Pulse Rate 85 83 88 Respiratory Rate 18 16 20 Blood Pressure 110/49 L 110/60 114/47 L Pulse Oximetry 96 99 99 02/26/20 02:00 02/26/20 06:00 Temperature 97.6 F 98.2 F Pulse Rate 74 75 Respiratory Rate 20 20 Blood Pressure 113/84 123/52 L Pulse Oximetry 99 98 Intake/Output Intake/Output: Intake & Output 02/23/20 02/24/20 02/25/20 02/26/20 23:59 23:59 23:59 23:59 Intake Total 1979 2149 1550 Output Total 165 1110 Balance 1979 1985 440 Meds/Results Medications: Active Medications Generic Name Dose Route Start Last Admin Trade Name Freq PRN Reason Stop Dose Admin Hydrocodone Bitart/Acetaminophen 1 tab 02/25/20 17:48 [place] 5-325 Mg PO Q4H PRN Pain Rated 1-6 Docusate Sodium 100 mg 02/25/20 17:48 02/25/20 20:00 Colace Capsule PO 100 mg BID KIRIT Administration Finasteride 5 mg 02/25/20 09:00 02/25/20 15:46 Proscar PO Not Given QAM KIRIT Hyoscyamine 0.125 mg 02/25/20 17:48 Levsin Tablet SUBLINGUAL Q6H PRN Bladder Spasm Dextrose/Lactated Ringer's 1,000 mls @ 125 mls/hr 02/24/20 10:10 02/26/20 05:11 Dextrose 5%/Lactated Ringers IV CONT 125 mls/hr .Q8H KIRIT Administration Cefazolin Sodium 2 gm in 50 mls @ 100 mls/hr 02/25/20 14:00 02/26/20 05:10 Ancef 2 Gm/D5w 50 Ml IVPB 100 mls/hr Q8H KIRIT Administration Morphine Sulfate 2 mg 02/25/20 17:48 Morphine Sulfate Inj (*Crx) IV PUSH Q2H PRN Pain Rated 7-10 Naloxone HCl 0.1 mg 02/25/20 17:48 Narcan IV PUSH Q2M PRN Opiate Reversal Ondansetron HCl 4 mg 02/25/20 17:48 Zofran Inj IV PU
[2020-02-26] MEDS: HYDROcodone/acetaminophen (*CRX) 5-325 MG TABLET 1 TAB PO ×4 (08:46→23:39)
[2020-02-26] MEDS: FINASTERIDE 5 MG TABLET PO (08:47)
[2020-02-26 10:00] VITALS: BP 112/51; PULSE 76; RESP 16; TEMP 36.9; O2SAT 99
--- NOTE | 2020-02-26 11:01 | WPDANESPN ---
Anes - Prog Note Post-Op Date/Time: 02/26/20 11:01 Cardiovascular status: normal Respiratory status: normal Airway patency: baseline Mental status: baseline Post-Op hydration status: normal Vital Signs: Last Vital Signs Temp 36.9 C 02/26/20 10:00 Pulse 76 02/26/20 10:00 Resp 16 02/26/20 10:00 BP 112/51 L 02/26/20 10:00 Pulse Ox 99 02/26/20 10:00 Pain Score (VAS): 0 I/O: Intake & Output 02/25/20 02/26/20 02/26/20 23:59 07:59 15:59 Intake Total 150 1550 120 Output Total 165 1110 Balance -15 440 120 Laboratory Tests 02/25/20 06:14 02/24/20 16:35 Post-procedural complaints: none Patient Feedback: Patient satisfied with anesthetic care.
[2020-02-26 14:00] VITALS: BP 119/54; PULSE 74; RESP 14; TEMP 37; O2SAT 100
[2020-02-26 14:30] LABS: Hematocrit 32.4 % (42.0-52.0); Mean Corpuscular HGB Conc 30.9 g/dl (32-36); Mean Corpuscular Hemoglobin 26.3 pg (26-34); Mean Corpuscular Volume 85.3 fl (80-100); Mean Platelet Volume 9.4 fl (7.4-10.4); Platelet Count Result 280 k/mm3 (150-375); White Blood Count 11.4 K/mm3 (4.5-10.0)
[2020-02-26 14:48] LABS: Anion Gap 10 mmol/L (8-16); Blood Urea Nitrogen 29 mg/dL (9-20); Calcium 8.7 mg/dL (8.4-10.2); Carbon Dioxide 24 mmol/L (22-30); Chloride 107 mmol/L (98-107); Estimated CRCL calculation 18 ml/min; Estimated Glomerular Filt Rate 30; Glucose 113 mg/dL (75-110); Potassium 3.9 mmol/L (3.4-5.0); Sodium 141 mmol/L (137-145)
[2020-02-26] MEDS: DOCUSATE SODIUM 100 MG CAPSULE PO (17:14)
[2020-02-26 18:00] VITALS: BP 122/96; PULSE 53; RESP 14; TEMP 36.6; O2SAT 98
[2020-02-26] MEDS: TAMSULOSIN HCL 0.4 MG CAPSULE PO (19:55)
[2020-02-26 22:00] VITALS: BP 116/51; PULSE 80; RESP 20; TEMP 36.9; O2SAT 99
[2020-02-27 02:00] VITALS: BP 116/52; PULSE 71; RESP 20; TEMP 37; O2SAT 98
[2020-02-27] MEDS: ceFAZolin 2 GM/D5W 50 ML 2 GM/50 ML BAG IVPB ×2 (06:01→13:14)
[2020-02-27] MEDS: HYDROcodone/acetaminophen (*CRX) 5-325 MG TABLET 1 TAB PO ×2 (06:03→10:39)
[2020-02-27] MEDS: DEXTROSE 5%/LACTATED RINGERS 1,000 ML 125 ML IV CONT (06:48)
[2020-02-27 06:49] VITALS: BP 137/58; PULSE 72; RESP 20; TEMP 36.6; O2SAT 98
[2020-02-27] MEDS: DOCUSATE SODIUM 100 MG CAPSULE PO (09:26)
[2020-02-27] MEDS: FINASTERIDE 5 MG TABLET PO (09:26)
[2020-02-27 10:00] VITALS: BP 124/51; PULSE 70; RESP 14; TEMP 37.1; O2SAT 100
[2020-02-27 10:30] LABS: Hematocrit 29.3 % (42.0-52.0); Hemoglobin 8.6 g/dL (14.0-18.0); Mean Corpuscular HGB Conc 29.4 g/dl (32-36); Mean Corpuscular Hemoglobin 26.5 pg (26-34); Mean Corpuscular Volume 90.2 fl (80-100); Mean Platelet Volume 9.5 fl (7.4-10.4); Platelet Count Result 205 k/mm3 (150-375); Red Blood Count 3.25 M/mm3 (4.6-6.20); Red Cell Distribution Width 15.2 % (11.5-14.5); White Blood Count 9.2 K/mm3 (4.5-10.0)
[2020-02-27] MEDS: NEOMYCIN/POLYMYXIN/BACITRACIN OINTMENT 15 GM TUBE 1 APPLIC TOPICAL (10:40)
[2020-02-27 10:42] LABS: Anion Gap 9 mmol/L (8-16); Blood Urea Nitrogen 24 mg/dL (9-20); Calcium 8.2 mg/dL (8.4-10.2); Carbon Dioxide 25 mmol/L (22-30); Chloride 105 mmol/L (98-107); Estimated CRCL calculation 19 ml/min; Estimated Glomerular Filt Rate 34; Glucose 108 mg/dL (75-110); Potassium 3.6 mmol/L (3.4-5.0); Sodium 139 mmol/L (137-145)
--- NOTE | 2020-02-27 10:59 | P.CDI_ITS ---
CDI Query Clarification [id number] creatinine 2.8 GRF 22 -02/26 BUN 24 creatinine 1.9 GRF 34 Please clarify if there is a possible corresponding diagnosis for above findings: * Acute renal failure * Chronic renal failure * Acute on chronic renal failure * Other * Not clinically significant * Unable to determine
--- NOTE | 2020-02-27 10:59 | WPDCDIQUERY2 ---
CDI Query Clarification Request [id number] creatinine 2.8 GRF 22 -02/26 BUN 24 creatinine 1.9 GRF 34 Please clarify if there is a possible corresponding diagnosis for above findings: Acute renal failure Chronic renal failure Acute on chronic renal failure Other Not clinically significant Unable to determine
--- NOTE | 2020-02-27 12:17 | WPDUROPN2 ---
Progress Note: A&P Assessment and Plan (1) Phimosis: Code(s): N47.1 - Phimosis Status: Acute Assessment and Plan: Dressing removed this morning, incisioins are clean and dry. Apply Neosporin 3x/day in a thin layer to glans and penis. (2) BPH (benign prostatic hyperplasia): Qualifiers: Lower urinary tract symptom presence: unspecified whether lower urinary tract symptoms present Qualified Code(s): N40.0 - Benign prostatic hyperplasia without lower urinary tract symptoms Code(s): N40.0 - Benign prostatic hyperplasia without lower urinary tract symptoms Status: Acute Assessment and Plan: Continue Finasteride and Flomax. Keep timmons in until cystogram next week. (3) Bladder stone: Code(s): N21.0 - Calculus in bladder Status: Acute Assessment and Plan: Ok to discharge this afternoon. Will obtain a cystogram and MEÑO, then remove timmons if both negative. (4) Hydronephrosis: Code(s): N13.30 - Unspecified hydronephrosis Status: Acute Assessment and Plan: MEÑO with cystogram to ensure resolution. Subjective Subjective Date/Time Seen: 02/27/20 12:17 POD #1 Open cystolithotomy,cystoscopy, circumcision Review of Systems Cardiovascular: Cardiovascular: Denies chest pain Respiratory: Respiratory: Reports no additional respiratory complaints Gastrointestinal: Gastrointestinal: Denies abdominal pain, Denies nausea and Denies vomiting Genitourinary: Genitourinary: Denies hematuria Exam Resp: Effort & Inspection: normal respiratory effort Cardio: Rate: regular rate GI: Inspection: incision (abdominal incision is well approximated, no drainage present) GI Palp: Yes Soft to palpation and No Tenderness to palpation present (GI) Other: [place]mar drain intact, dressing dry and intact : Penis: Yes circumcised, Yes ecchymosis, No erythematous and Yes other (incisions healing well, well approximated, no drainage present) Meatus: No Erythema at meatus Urinary Catheter: Urinary Catheter: patent and draining and urine clear Extrem: General: no edema Objective Data Vital Signs Vital Signs: Vital Signs - 24 hr 02/26/20 14:00 02/26/20 18:00 02/26/20 22:00 Temperature 98.6 F 97.8 F 98.5 F Pulse Rate 74 53 L 80 Respiratory Rate 14 14 20 Blood Pressure 119/54 L 122/96 H 116/51 L Pulse Oximetry 100 98 99 02/27/20 02:00 02/27/20 06:49 02/27/20 10:00 Temperature 98.6 F 97.8 F 98.7 F Pulse Rate 71 72 70 Respiratory Rate 20 20 14 Blood Pressure 116/52 L 137/58 L 124/51 L Pulse Oximetry 98 98 100 Intake/Output Intake/Output: Intake & Output 02/24/20 02/25/20 02/26/20 02/27/20 23:59 23:59 23:59 23:59 Intake Total 19790 4880 2120 Output Total 165 2067 1102 Balance 1979 1984 2813 1018 Meds/Results Medications: Active Medications Generic Name Dose Route Start Last Admin Trade Name Freq PRN Reason Stop Dose Admin Hydrocodone Bitart/Acetaminophen 1 tab 02/25/20 17:48 02/27/20 10:39 [place] 5-325 Mg PO 1 tab Q4H PRN Administration Pain Rated 1-6 Docusate Sodium 100 mg 02/25/20 17:48 02/27/20 09:26 Colace Capsule PO 100 mg BID KIRIT Administration Finasteride 5 mg 02/25/20 09:00 02/27/20 09:26 Proscar PO 5 mg QAM KIRIT Administration Hyoscyamine 0.125 mg 02/25/20 17:48 Levsin Tablet SUBLINGUAL Q6H PRN Bladder Spasm Dextrose/Lactated Ringer's 1,000 mls @ 125 mls/hr 02/24/20 10:10 02/27/20 06:48 Dextrose 5%/Lactated Ringers IV CONT 125 mls/hr .Q8H KIRIT Administration Cefazolin Sodium 2 gm in 50 mls @ 100 mls/hr 02/25/20 14:00 02/27/20 06:50 Ancef 2 Gm/D5w 50 Ml IVPB Infused Q8H KIRIT Infusion Morphine Sulfate 2 mg 02/25/20 17:48 Morphine Sulfate Inj (*Crx) IV PUSH Q2H PRN Pain Rated 7-10 Naloxone HCl 0.1 mg 02/25/20 17:48 Narcan IV PUSH Q2M PRN Opiate Reversal Neomycin/Polymyxin/Bacitracin 1 applic 02/27/20 09:00
--- NOTE | 2020-02-27 13:12 | PM.DS ---
DS: Admitting Diagnosis Admitting Diagnosis Admitting Diagnosis: open cystolithotomy, bladder stone, phimosis DS: Summary Time Spent with Patient Time attestation: Pre-Op Diagnosis: Phimosis, Bladder stone, Hydronephrosis. Post Op Diagnosis: Phimosis, Bladder Stone, Hydronephrosis. Patient underwent a open cystolithotomy,cystoscopy, circumcision on 02/25/[address] Mcdonnell. He tolerated the procedure well and was transferred to recovery in stable condition and then to the floor for further observation. He has had minimal EDWIN drainage since and his urine has remained clear in the timmons. He will be discharged home today with pain medication, and to resume all previous home medications. He will resume a diet as tolerated and activity no straining. He will follow up on 03/12/2020 after a cystogram and MEÑO. He will go home with his timmons, EDWIN drain was removed today. Exam Resp: Effort & Inspection: normal respiratory effort Cardio: Rate: regular rate GI: Inspection: incision (well approximated, no drainage or edema present) GI Palp: Yes Soft to palpation and No Tenderness to palpation present (GI) Urinary Catheter: Urinary Catheter: patent and draining and urine clear Extrem: General: no edema DS: Data Data Completed and Pending Completed studies during hospitalization: Pending at discharge 02/25/20 14:04 Surgical [PTH] Routine Surgical [PTH] Routine Labs on day of discharge: Labs from last 24 hours 02/27/20 02/27/20 02/26/20 10:24 10:24 14:23 WBC 9.2 RBC 3.25 L Hgb 8.6 L Hct 29.3 L MCV 90.2 D MCH 26.5 MCHC 29.4 L RDW 15.2 H Plt Count 205 MPV 9.5 Sodium 139 141 Potassium 3.6 3.9 Chloride 105 107 Carbon Dioxide 25 24 Anion Gap 9 10 BUN 24 H 29 H D Creatinine 1.90 H 2.10 H Estim Creat Clear Calc 19 18 Estimated GFR 34 L 30 L Glucose 108 113 H Calcium 8.2 L 8.7 02/26/20 14:23 WBC 11.4 H RBC 3.80 L Hgb 10.0 L Hct 32.4 L MCV 85.3 MCH 26.3 MCHC 30.9 L RDW 15.0 H Plt Count 280 MPV 9.4 Sodium Potassium Chloride Carbon Dioxide Anion Gap BUN Creatinine Estim Creat Clear Calc Estimated GFR Glucose Calcium Discharge Plan Discharge Attending physician on discharge: Aníbal Mcdonnell Discharging Clinician: Niru Ortiz Anticipated Discharge Date/Time: 02/27/20 13:03 Patient Disposition: Home, Self-Care Activity: may shower Diet: as tolerated Wound Care Instructions: change dressing daily Discharge Instructions: Apply Neosporin to penis 2x/day for two weeks. Follow up for Cystogram and Renal Ultrasound in Radiology on 03/12/2020 at 8am, arrive at 7:30, then follow up in the office following for timmons removal. When you arrive for your radiology appointment, please call [phone] from the car to let them know you are there and they will inform you as to when to come in and please wear a mask. Change dressing for drain incision daily and as needed. Report fever of >102, incision drainage from abdominal incision or penile incision. Finish Macrobid (antibiotics) from home and take pain medication as needed. Take stool softners over the counter as needed. Patient Instructions: Antibiotic Form, How to Stop Smoking (DC) Stand Alone Forms: General Discharge Information Follow-up/Referrals: Aníbal Mcdonnell MD [Physician] - Discharge Medications: New hydrocodone-acetaminophen 5-325 mg tablet 1 tablet PO Q6H PRN (Reason: pain) Qty: 20 RF: 0 Continued finasteride [Proscar] 5 mg Tablet 5 mg PO QAM Qty: 30 RF: 0 nitrofurantoin monohyd/m-cryst 100 mg capsule 100 mg PO BID RF: 0 tamsulosin 0.4 mg capsule 0.4 mg PO HS RF: 0 Other Ambulatory Orders: US renal BI (Routine) Timeframe: 2 Weeks Location: Determined by Patient Ordered By: Niru Ortiz Date of admission: 02/24/20 10:09 Primary Care Provider: Dev Montejo
[2020-02-27 14:00] VITALS: BP 124/56; PULSE 76; RESP 14; TEMP 36.8; O2SAT 99
== END 2020-02-27 18:20 | disposition home or self-care (01) | DRG 663 ==
PROVIDERS: Admitting Provider Urology; PCP Family Medicine; Visit Provider Nurse Practitioner Adult Health
PROC: 0TCB0ZZ Extirpation of Matter from Bladder, Open Approach (ICD-10-PCS; CPT 51050; principal; 2020-02-25 13:00)
PROC: 0TCB0ZZ Extirpation of Matter from Bladder, Open Approach (ICD-10-PCS; CPT 54161; 2020-02-25 13:00)
PROC: 0TJB8ZZ Inspection of Bladder, Via Natural or Artificial Opening Endoscopic (ICD-10-PCS; CPT 52000; 2020-02-25 13:00)
DX: N21.0 Calculus in bladder (principal); N13.30 Unspecified hydronephrosis; N30.90 Cystitis, unspecified without hematuria; N47.1 Phimosis; N40.0 Benign prostatic hyperplasia without lower urinary tract symptoms; F17.210 Nicotine dependence, cigarettes, uncomplicated; Z98.42 Cataract extraction status, left eye; Z98.41 Cataract extraction status, right eye
CPT/HCPCS: 36415; 80048; 82365; 83880; 85027; 86850; 86900; 86901; 87635; 88300; 88304; A9270; C1769; C9803; J0690; J2405; J2704; J2710; J3010; J7030; J7120; J7121; U0003

== ENCOUNTER 2020-03-18 13:21 | Outpatient (CLI) | payer MEDICARE, MEDICAID, SELFPAY ==
--- NOTE | ~2020-03-18 | XR_ITS ---
EXAMINATION: XR cystogram DATE: 03/18/2020 14:35 INDICATION: Bladder stone status post removal. TECHNIQUE: Water-soluble contrast was gravity-infused through the patient's Whitney catheter. Multiple fluoroscopic images were obtained. Fluoroscopy exposure time was 0.5 minutes. The total number of magi ges was 13. COMPARISON: CT abdomen and pelvis 01/11/2020 FINDINGS: The bladder wall is trabeculated. There is no bladder stone. There is no extraluminal leaka ge of contrast. There is no ureteral reflux. IMPRESSION: 1. No extraluminal leakage of contrast. 2. Trabeculated bladder wall. Reviewed, dictated and finalized at location A.
--- NOTE | ~2020-03-18 | US_ITS ---
US renal BI 03/18/2020 14:14 Procedure: Realtime transabdominal ultrasound of the kidneys and bladder. Indication: Hydronephrosis Comparison: No prior studies for comparison. Findings: Renal echotexture is normal bilaterally without hydronephrosis, contour deforming mass or r enal calculus. There is a 2 cm left renal cyst. The right kidney measures 9.2 cm and left kidney justin ures 8.5 cm. There is a Whitney catheter in the bladder. Impression: 1: 2 cm left renal cyst. Reviewed, dictated and finalized at location B. Impression: 1: 2 cm left renal cyst.
== END 2020-03-18 13:22 | disposition home or self-care (01) ==
PROVIDERS: PCP Family Medicine; Referring Provider Nurse Practitioner Adult Health; Visit Provider Urology
DX: N21.0 Calculus in bladder (principal); N28.1 Cyst of kidney, acquired
CPT/HCPCS: 51600; 74430; 76775; Q9967

== ENCOUNTER → 2021-06-17 03:05 | Outpatient (CLI) | payer OTHER, SELFPAY ==
[2021-06-17 21:56] LABS: SARS-CoV-2 RNA PCR Positive
== END ==
PROVIDERS: PCP Family Medicine; Visit Provider Physician Assistant Medical
DX: U07.1 COVID-19 (principal)
CPT/HCPCS: C9803; U0003; U0005